=== PATIENT | male | born 1960 | race Two or more races ===

== ENCOUNTER → 2018-12-16 | Outpatient (CLI) | payer OTHER ==
[2018-12-16 12:31] LABS: Albumin 4.2 g/dL (3.4-5.0); Potassium 4.1 mmol/L (3.5-5.1)
[2018-12-16 12:37] LABS: BUN/Creatinine Ratio 15.1; Bilirubin, Total 1.2 mg/dL (0.2-1.0); Calcium 9.1 mg/dL (8.5-10.1); Total Protein 8.1 g/dL (6.4-8.2)
== END | disposition home or self-care (01) ==
LOC: LAB 10:59
PROVIDERS: ATTEND Internal Medicine
DX: E11.9 Type 2 diabetes mellitus without complications (principal); I10 Essential (primary) hypertension; E78.5 Hyperlipidemia, unspecified
CPT/HCPCS: 36415; 80053; 80061; 82043; 83036; 84153

== ENCOUNTER → 2018-12-22 | Outpatient (CLI) | payer OTHER | END | disposition home or self-care (01) | LOC: LAB 10:07 | PROVIDERS: ATTEND Internal Medicine | DX: E11.9 Type 2 diabetes mellitus without complications (principal); I10 Essential (primary) hypertension; E78.5 Hyperlipidemia, unspecified | CPT/HCPCS: 82270 ==

== ENCOUNTER → 2019-04-14 | Outpatient (CLI) | payer OTHER | END | disposition home or self-care (01) | LOC: LAB 07:15 | PROVIDERS: ATTEND Internal Medicine | DX: E11.9 Type 2 diabetes mellitus without complications (principal) | CPT/HCPCS: 36415; 83036 ==

== ENCOUNTER → 2019-07-06 | Outpatient (CLI) | payer OTHER ==
[2019-07-06 09:00] LABS: Potassium 4.8 mmol/L (3.5-5.1)
[2019-07-06 09:07] LABS: Albumin 3.8 g/dL (3.4-5.0); BUN/Creatinine Ratio 16.3; Calcium 8.6 mg/dL (8.5-10.1); Phosphorus 2.9 mg/dL (2.5-4.90)
== END | disposition home or self-care (01) ==
LOC: LAB 08:08
PROVIDERS: ATTEND Internal Medicine
DX: E11.9 Type 2 diabetes mellitus without complications (principal); I10 Essential (primary) hypertension
CPT/HCPCS: 36415; 80061; 80069

== ENCOUNTER → 2019-07-23 | Outpatient (CLI) | payer OTHER | END | disposition home or self-care (01) | LOC: XY 10:01 | PROVIDERS: ATTEND Internal Medicine | DX: I65.21 Occlusion and stenosis of right carotid artery (principal); I10 Essential (primary) hypertension; E11.9 Type 2 diabetes mellitus without complications | CPT/HCPCS: 93886 ==

== ENCOUNTER → 2019-07-29 | Outpatient (CLI) | payer OTHER ==
[2019-07-29 09:40] LABS: Cholesterol 184 mg/dL (< 200); HDL Cholesterol 65 mg/dL (40-59); LDL Cholesterol 111 mg/dL (< 100); Triglycerides 70 mg/dL (< 150)
== END | disposition home or self-care (01) ==
LOC: LAB 08:16
PROVIDERS: ATTEND Internal Medicine
DX: E11.9 Type 2 diabetes mellitus without complications (principal)
CPT/HCPCS: 36415; 80061; 83036

== ENCOUNTER → 2019-09-03 | Outpatient (CLI) | payer OTHER | END | disposition home or self-care (01) | LOC: XY 08:56 | PROVIDERS: ATTEND Internal Medicine | DX: I10 Essential (primary) hypertension (principal); R29.898 Other symptoms and signs involving the musculoskeletal system | CPT/HCPCS: 93306 ==

== ENCOUNTER → 2019-11-26 | Outpatient (CLI) | payer OTHER ==
[2019-11-26 08:51] LABS: Potassium 4.2 mmol/L (3.5-5.1)
[2019-11-26 09:03] LABS: BUN/Creatinine Ratio 17.2; Bilirubin, Total 0.8 mg/dL (0.2-1.0); Calcium 9.2 mg/dL (8.5-10.1); Total Protein 8.4 g/dL (6.4-8.2)
== END | disposition home or self-care (01) ==
LOC: LAB 07:54
PROVIDERS: ATTEND Internal Medicine
DX: Z12.5 Encounter for screening for malignant neoplasm of prostate (principal); E11.9 Type 2 diabetes mellitus without complications; E78.5 Hyperlipidemia, unspecified; I10 Essential (primary) hypertension
CPT/HCPCS: 36415; 80053; 80061; 82043; 83036; 84153

== ENCOUNTER → 2020-03-01 | Outpatient (CLI) | payer OTHER ==
[2020-03-01 07:49] LABS: Albumin 4.1 g/dL (3.4-5.0)
[2020-03-01 07:52] LABS: Bilirubin, Direct 0.3 mg/dL (0-0.2)
== END | disposition home or self-care (01) ==
LOC: LAB 07:09
PROVIDERS: ATTEND Internal Medicine
DX: E11.9 Type 2 diabetes mellitus without complications (principal); Z12.11 Encounter for screening for malignant neoplasm of colon
CPT/HCPCS: 36415; 80061; 80076; 82270; 83036

== ENCOUNTER → 2020-03-30 | Outpatient (CLI) | payer OTHER ==
[2020-03-30 10:03] LABS: Bilirubin, Direct 0.2 mg/dL (0-0.2); Bilirubin, Total 0.7 mg/dL (0.2-1.0); Total Protein 8.2 g/dL (6.4-8.2)
== END | disposition home or self-care (01) ==
LOC: LAB 07:50
PROVIDERS: ATTEND Internal Medicine
DX: E78.5 Hyperlipidemia, unspecified (principal)
CPT/HCPCS: 36415; 80076

== ENCOUNTER → 2020-06-07 | Outpatient (CLI) | payer OTHER ==
[2020-06-07 09:33] LABS: Bilirubin, Direct 0.2 mg/dL (0-0.2); Bilirubin, Total 0.7 mg/dL (0.2-1.0); Total Protein 8.1 g/dL (6.4-8.2)
== END | disposition home or self-care (01) ==
LOC: LAB 08:49
PROVIDERS: ATTEND Internal Medicine
DX: E78.5 Hyperlipidemia, unspecified (principal)
CPT/HCPCS: 36415; 80061; 80076

== ENCOUNTER → 2020-09-07 | Outpatient (CLI) | payer OTHER ==
[2020-09-07 10:34] LABS: Cholesterol 144 mg/dL (< 200); HDL Cholesterol 60 mg/dL (40-59); LDL Cholesterol 71 mg/dL (< 100); Triglycerides 147 mg/dL (< 150)
== END | disposition home or self-care (01) ==
LOC: LAB 09:34
PROVIDERS: ATTEND Internal Medicine
DX: E11.9 Type 2 diabetes mellitus without complications (principal)
CPT/HCPCS: 36415; 80061

== ENCOUNTER → 2021-03-03 | Outpatient (CLI) | payer OTHER | END | disposition home or self-care (01) | LOC: LAB 07:12 | PROVIDERS: ATTEND Internal Medicine | DX: Z12.11 Encounter for screening for malignant neoplasm of colon (principal); E55.9 Vitamin D deficiency, unspecified; E11.9 Type 2 diabetes mellitus without complications; I10 Essential (primary) hypertension | CPT/HCPCS: 82043; 82270; 82306 ==

== ENCOUNTER → 2021-09-04 | Outpatient (CLI) | payer OTHER | END | disposition home or self-care (01) | LOC: LAB 09:21 | PROVIDERS: ATTEND Internal Medicine | DX: E11.9 Type 2 diabetes mellitus without complications (principal); I10 Essential (primary) hypertension | CPT/HCPCS: 36415; 82306; 83036 ==

== ENCOUNTER → 2021-12-06 | Outpatient (CLI) | payer OTHER ==
[2021-12-06 08:33] LABS: Cholesterol 152 mg/dL (< 200); HDL Cholesterol 75 mg/dL (40-59); LDL Cholesterol 61 mg/dL (< 100); Triglycerides 123 mg/dL (< 150)
== END | disposition home or self-care (01) ==
LOC: LAB 07:09
PROVIDERS: ATTEND Internal Medicine
DX: E11.9 Type 2 diabetes mellitus without complications (principal); E78.5 Hyperlipidemia, unspecified
CPT/HCPCS: 36415; 80061; 82043; 84153

== ENCOUNTER → 2022-06-04 | Outpatient (CLI) | payer OTHER ==
[2022-06-04 08:29] LABS: Potassium 4.1 mmol/L (3.5-5.1)
[2022-06-04 08:36] LABS: BUN/Creatinine Ratio 16.1; Calcium 8.6 mg/dL (8.5-10.1)
== END | disposition home or self-care (01) ==
LOC: LAB 06:39
PROVIDERS: ATTEND Internal Medicine
DX: E11.9 Type 2 diabetes mellitus without complications (principal); E78.5 Hyperlipidemia, unspecified; I10 Essential (primary) hypertension
CPT/HCPCS: 36415; 80048; 82043; 83036

== ENCOUNTER → 2022-09-03 | Outpatient (CLI) | payer OTHER ==
[2022-09-03 08:35] LABS: Cholesterol 185 mg/dL (< 200); HDL Cholesterol 70 mg/dL (40-59); LDL Cholesterol 97 mg/dL (< 100); Triglycerides 113 mg/dL (< 150)
== END | disposition home or self-care (01) ==
LOC: LAB 07:07
PROVIDERS: ATTEND Internal Medicine
DX: E78.5 Hyperlipidemia, unspecified (principal)
CPT/HCPCS: 36415; 80061

== ENCOUNTER → 2022-12-03 | Outpatient (CLI) | payer OTHER ==
[2022-12-03 08:27] LABS: Albumin 3.9 g/dL (3.4-5.0)
[2022-12-03 08:35] LABS: Bilirubin, Direct 0.3 mg/dL (0-0.2); Bilirubin, Total 1.1 mg/dL (0.2-1.0); Total Protein 7.9 g/dL (6.4-8.2)
== END | disposition home or self-care (01) ==
LOC: LAB 07:38
PROVIDERS: ATTEND Internal Medicine
DX: E11.9 Type 2 diabetes mellitus without complications (principal); E78.5 Hyperlipidemia, unspecified
CPT/HCPCS: 36415; 80061; 80076

== ENCOUNTER → 2023-03-04 | Outpatient (CLI) | payer OTHER | END | disposition home or self-care (01) | LOC: LAB 07:47 | PROVIDERS: ATTEND Internal Medicine | DX: E11.9 Type 2 diabetes mellitus without complications (principal) | CPT/HCPCS: 36415; 83036 ==

== ENCOUNTER → 2023-06-04 | Outpatient (CLI) | payer MEDICARE, OTHER ==
[2023-06-04 08:03] LABS: Creatinine, Urine 194.92 mg/dL (30.0-125.0)
== END | disposition home or self-care (01) ==
LOC: LAB 06:42
PROVIDERS: ATTEND Internal Medicine
DX: Z12.5 Encounter for screening for malignant neoplasm of prostate (principal); Z12.11 Encounter for screening for malignant neoplasm of colon; E11.9 Type 2 diabetes mellitus without complications; E78.5 Hyperlipidemia, unspecified; E55.9 Vitamin D deficiency, unspecified
CPT/HCPCS: 36415; 82043; 82270; 82306; 82570; 83036; 84153

== ENCOUNTER → 2023-09-03 | Outpatient (CLI) | payer MEDICARE, OTHER ==
[2023-09-03 08:08] LABS: Anion Gap 6 (5-15); Carbon Dioxide 29 mmol/L (20-30); Chloride 103 mmol/L (98-107); Potassium 4.3 mmol/L (3.5-5.1); Sodium 138 mmol/L (136-145)
[2023-09-03 08:09] LABS: Calcium 9.6 mg/dL (8.5-10.1)
[2023-09-03 08:13] LABS: Glucose 157 mg/dL (74-106)
[2023-09-03 08:14] LABS: BUN/Creatinine Ratio 14.9 (10.0-20.0); Blood Urea Nitrogen 14 mg/dL (9-23); LDL Cholesterol 54 mg/dL (< 100); Triglycerides 76 mg/dL (< 150)
[2023-09-03 08:15] LABS: Cholesterol 128 mg/dL (< 200)
[2023-09-03 08:16] LABS: HDL Cholesterol 59 mg/dL (40-59)
[2023-09-03 08:21] LABS: Creatinine, Urine 261.4 mg/dL (30.0-125.0)
== END | disposition home or self-care (01) ==
LOC: LAB 07:10
PROVIDERS: ATTEND Internal Medicine
DX: E11.9 Type 2 diabetes mellitus without complications (principal); E55.9 Vitamin D deficiency, unspecified; E78.5 Hyperlipidemia, unspecified
CPT/HCPCS: 36415; 80048; 80061; 82043; 82306; 82570; 83036

== ENCOUNTER → 2023-12-04 | Outpatient (CLI) | payer MEDICARE, OTHER | END | disposition home or self-care (01) | LOC: LAB 06:33 | PROVIDERS: ATTEND Internal Medicine | DX: E11.9 Type 2 diabetes mellitus without complications (principal) | CPT/HCPCS: 36415; 83036 ==

== ENCOUNTER → 2024-03-02 | Outpatient (CLI) | payer MEDICARE, OTHER ==
[2024-03-02 11:32] LABS: Anion Gap 5 (5-15); Calcium 9.8 mg/dL (8.5-10.1); Carbon Dioxide 28 mmol/L (20-30); Chloride 106 mmol/L (98-107); Potassium 3.9 mmol/L (3.5-5.1); Sodium 139 mmol/L (136-145)
[2024-03-02 11:38] LABS: BUN/Creatinine Ratio 14.9 (10.0-20.0); Blood Urea Nitrogen 13 mg/dL (9-23); Glucose 93 mg/dL (74-106)
[2024-03-02 11:44] LABS: Creatinine, Urine 84.99 mg/dL (30.0-125.0)
== END | disposition home or self-care (01) ==
LOC: LAB 10:13
PROVIDERS: ATTEND Internal Medicine
DX: E11.9 Type 2 diabetes mellitus without complications (principal); E78.5 Hyperlipidemia, unspecified; E55.9 Vitamin D deficiency, unspecified; N40.0 Benign prostatic hyperplasia without lower urinary tract symptoms
CPT/HCPCS: 36415; 80048; 82043; 82306; 82570; 83036

== ENCOUNTER → 2024-06-02 | Outpatient (CLI) | payer MEDICARE, OTHER ==
[2024-06-02 09:10] LABS: Basophils # (auto) 0.1 10 ^3/uL (0-0.2); Basophils % (auto) 0.8 % (0.0-2.0); Eosinophils # (auto) 0.2 10 ^3/uL (0-0.8); Eosinophils % (auto) 3.2 % (0.0-7.0); Hematocrit 48.7 % (41.0-53.0); Hemoglobin 16.9 g/dL (13.5-17.5); Mean Corpuscular Hemoglobin 29.8 pg (28.0-32.0); Mean Corpuscular Hgb Conc. 34.7 g/dL (32.0-36.0); Mean Corpuscular Volume 85.8 fL (80.0-100.0); Monocytes # (auto) 0.5 10 ^3/uL (0-1.3); Monocytes % (auto) 7.3 % (0.0-12.0); Neutrophils # (auto) 4.3 10 ^3/uL (1.6-8.6); Neutrophils % (auto) 60.7 % (37.0-80.0); Nucleated Red Blood Cells % 0.1 %; Platelet Count (auto) 356 10^3/uL (140-450); Red Blood Cells 5.67 10^6/uL (4.5-5.90); Red Cell Distribution Width 13.8 % (11.8-14.3); White Blood Cell 7.1 10^3/uL (4.4-10.8)
[2024-06-02 09:53] LABS: Alanine Aminotransferase 23 U/L (7-40); Alkaline Phosphatase 84 U/L (46-116); Anion Gap 7 (5-15); BUN/Creatinine Ratio 18.5 (10.0-20.0); Blood Urea Nitrogen 15 mg/dL (9-23); Calcium 9.7 mg/dL (8.7-10.4); Carbon Dioxide 27 mmol/L (20-30); Chloride 105 mmol/L (98-107); Glucose 151 mg/dL (74-106); LDL Cholesterol 70 mg/dL (< 100); Potassium 4.5 mmol/L (3.5-5.1); Sodium 139 mmol/L (136-145); Triglycerides 104 mg/dL (< 150)
[2024-06-02 09:54] LABS: Aspartate Aminotransferase 13 U/L (13-40); Bilirubin, Total 0.8 mg/dL (0.2-1.0); Cholesterol 146 mg/dL (< 200); HDL Cholesterol 59 mg/dL (40-59); Total Protein 8.3 g/dL (5.7-8.2)
== END | disposition home or self-care (01) ==
LOC: LAB 08:40
PROVIDERS: ATTEND Internal Medicine
DX: Z12.5 Encounter for screening for malignant neoplasm of prostate (principal); Z12.11 Encounter for screening for malignant neoplasm of colon; E11.9 Type 2 diabetes mellitus without complications; E78.5 Hyperlipidemia, unspecified; Z79.899 Other long term (current) drug therapy
CPT/HCPCS: 36415; 80053; 80061; 82270; 82306; 83036; 85025; G0103; 84153

== ENCOUNTER → 2024-08-31 | Outpatient (CLI) | payer MEDICARE, OTHER | END | disposition home or self-care (01) | LOC: LAB 06:50 | PROVIDERS: ATTEND Internal Medicine | DX: E11.9 Type 2 diabetes mellitus without complications (principal); E78.5 Hyperlipidemia, unspecified; E55.9 Vitamin D deficiency, unspecified; Z86.39 Personal history of other endocrine, nutritional and metabolic disease | CPT/HCPCS: 36415; 82306; 83036 ==

== ENCOUNTER 2025-01-31 03:31 | Inpatient (IN) | payer MEDICARE, OTHER ==
[~2025-01-31] VITALS: Ht 165.1 cm; Wt 76.5 kg
[2025-01-31] MEDS: ALBUTEROL SULF 2.5 MG/0.5ML(0.5%) NEB SOLN NEB ONE (03:56)
[2025-01-31 04:02] LABS: Base Excess -4.3 mmol/L (-2.0-3.0)
[2025-01-31] MEDS: cefTRIAXone 1GM/50ML D5W 50 ML IV ONE (04:05)
[2025-01-31] MEDS: SODIUM CHLORIDE 0.9% 1,000 ML IV ONE ×3 (04:05→05:08)
[2025-01-31] MEDS: ACETAMINOPHEN 325 MG TAB PO ONE (04:12)
[2025-01-31] MEDS: ONDANSETRON HCL 4 MG/2 ML VIAL IV ONE (04:12)
[2025-01-31 04:19] LABS: Basophils # (auto) 0 10 ^3/uL (0-0.2); Basophils % (auto) 0.4 % (0.0-2.0); Eosinophils # (auto) 0 10 ^3/uL (0-0.8); Eosinophils % (auto) 0.3 % (0.0-7.0); Hematocrit 42.4 % (41.0-53.0); Hemoglobin 14.7 g/dL (13.5-17.5); Lymphocytes # (auto) 0.3 10 ^3/uL (0.4-5.4); Lymphocytes % (auto) 3.1 % (10.0-50.0); Mean Corpuscular Hemoglobin 29.7 pg (28.0-32.0); Mean Corpuscular Hgb Conc. 34.6 g/dL (32.0-36.0); Mean Corpuscular Volume 85.9 fL (80.0-100.0); Monocytes # (auto) 0.4 10 ^3/uL (0-1.3); Monocytes % (auto) 3.9 % (0.0-12.0); Neutrophils % (auto) 92.3 % (37.0-80.0); Platelet Count (auto) 231 10^3/uL (140-450); Red Blood Cells 4.94 10^6/uL (4.5-5.90); Red Cell Distribution Width 12.8 % (11.8-14.3); White Blood Cell 10.9 10^3/uL (4.4-10.8)
--- NOTE | 2025-01-31 04:26 | ED.PDOC ---
SOB-HPI HPI Comments 64-year-old male who came to ER via EMS for shortness of breath. Patient has been having flu-like symptoms for the past few days, with productive cough, episodes of hematemesis, shortness of breath, and left-sided chest pains. Noted also muscle and joint pains and headache. Patient's currently admitted pneumonia, it patient feels like he is having the same symptoms too. Patient was saturating 80% on room air on scene, and was tachycardic at the 140s Chief Complaint: Shortness of Breath Time Seen by MD: 04:18 Reviewed notes: Hr Assistant Notes Information Source: Patient Mode of Arrival: EMS Severity: Moderate Timing: Days Duration: Since onset Context: With Light Exertion Prehospital treatment: Oxygen Associated Signs and Symptoms: Cough, Chest Pain Location: Chest (L) If cough with SOB: Productive Review of Systems REVIEW OF SYSTEMS: No fever, no chills, or fatigue HEENT: No sore throat, no earache, no congestion, no neck pain. Cardiac: (+) chest pain. No palpitations. Lungs: (+) shortness of breath, (+) cough. GI: No nausea, no vomiting, no diarrhea, no constipation, no abdominal pain : No dysuria, frequency, or urgency. No hematuria. Musculoskeletal: No joint pain , no joint swelling, no extremity edema. Skin: No rash, no itching. Neuro: (+) headache, no dizziness, no weakness Vital Signs Vital Signs Date Time Temp Pulse Resp B/P (MAP) Pulse Ox O2 Delivery O2 Flow Rate FiO2 01/31/25 04:54 100.1 01/31/25 04:26 110 01/31/25 04:04 18 96 Nasal Cannula* 4 36 01/31/25 04:00 133/70 (91) Physical Exam General: Awake, alert and oriented. No acute distress. Skin: Skin in warm, dry and intact. Appropriate color for ethnicity. Nailbeds pink with no cyanosis. HEENT: The head is normocephalic and atraumatic. Conjunctivae are clear without exudates or hemorrhage. Sclera is non-icteric. EOM are intact. No signs of nystagmus. Eyelids are normal in appearance without swelling or lesions. Oral mucosa is pink and moist. Nasal cannula in place. Neck: The neck is supple with normal range of motion. No JVD. Cardiac: Heart rate and rhythm are normal. No murmurs, gallops, or rubs are auscultated. Respiratory: No signs of respiratory distress. Rhonchi at bilateral bases. Abdominal: Abdomen is soft, non-tender without distention. Bowel sounds are present and normoactive in all four quadrants. Extremities: Upper and lower extremities are atraumatic in appearance without deformity or edema. Neurological: The patient is awake, alert and oriented to person, place, and time with normal speech. Speech is clear. There is no facial asymmetry. Past Medical History PAST MEDICAL HISTORY: DM, High Lipids, HTN Surgical History (Other): Right shoulder surgery Family History Family History: Reviewed,noncontributory to illness Social History Smoker: Non-Smoker Alcohol: Denies ETOH Use Drugs: Denies Drug Use Lives In: Home EKG EKG : Pulse Rate (adult): 110 [place]: LAD Cardiac Rhythm: ST Comments No STEMI. Left anterior fascicular block Was a procedure done? Was a procedure done?: No Differential Dx Differential Diagnosis: Asthma, Bronchitis, Pneumonia, Respiratory Distress, URI X-Ray, Labs, Meds, VS Vital Signs Date Time Temp Pulse Resp B/P (MAP) Pulse Ox O2 Delivery O2 Flow Rate FiO2 01/31/25 04:54 100.1 01/31/25 04:26 110 01/31/25 04:15 110 01/31/25 04:12 101.8 01/31/25 04:04 18 96 Nasal Cannula* 4 36 01/31/25 04:00 101 16 133/70 (91) 97 01/31/25 03:45 Nasal Cannula* 4 36 01/31/25 03:45 101.8 111 18 138/76 (96) 98 101.8 01/31/25 03:36 101.8 128 18 138/76 (96) 94 101.8 Lab Test 01/31/25 04:50 01/31/25 03:56 01/31/25 03:55 Range/Units Influenza Type A Antigen Negative Negative Influenza Type B Antigen Negative Negative SARS-CoV-2 Antigen (Rapid) Negative NEGATIVE Blood Gas Specimen Type Arterial Blood Gas Sample Site Right radial Blood Gas Patient Temperature 37.0 Arterial Blood Date Drawn [id number] Arterial Blood pH 7.469 H 7.350-7.450 Arterial Blood Partial Pressure CO2 24.4 L 35.0-48.0 mmHg Arterial Blood Partial Pressure O2 80.6 L 83.0-108.0 mmHg Arterial Blood HCO3 17.3 L 21.0-28.0 mmol/L Arterial Blood Oxygen Saturation 96.1 94.0-98.0 % Arterial Blood Base Excess -4.3 L -2.0-3.0 mmol/L Arterial Blood Oxyhemoglobin 95.1 94.0-98.0 % Arterial Blood Carboxyhemoglobin 0.4 L 0.5-1.5 % Arterial Blood Methemoglobin 0.6 0.0-1.5 % Steven Test Yes Blood Gas Total Hemoglobin 14.90 13.5-17.5 g/dL Blood Gas Modality Nasal cannula FiO2 % 36.0 White Blood Count 10.9 H 4.4-10.8 10^3/uL Red Blood Count 4.94 4.5-5.90 10^6/uL Hemoglobin 14.7 13.5-17.5 g/dL Hematocrit 42.4 41.0-53.0 % Mean Corpuscular Volume 85.9 80.0-100.0 fL Mean Corpuscular Hemoglobin 29.7 28.0-32.0 pg Mean Corpuscular Hemoglobin Concent 34.6 32.0-36.0 g/dL Red Cell Distribution Width 12.8 11.8-14.3 % Platelet Count 231 140-450 10^3/uL Mean Platelet Volume 7.0 6.9-10.8 fL Neutrophils (%) (Auto) 92.3 H 37.0-80.0 % Lymphocytes (%) (Auto) 3.1 L 10.0-50.0 % Monocytes (%) (Auto) 3.9 0.0-12.0 % Eosinophils (%) (Auto) 0.3 0.0-7.0 % Basophils (%) (Auto) 0.4 0.0-2.0 % Neutrophils # (Auto) 10.0 H 1.6-8.6 10 ^3/uL Lymphocytes # (Auto) 0.3 L 0.4-5.4 10 ^3/uL Monocytes # (Auto) 0.4 0-1.3 10 ^3/uL Eosinophils # (Auto) 0 0-0.8 10 ^3/uL Basophils # (Auto) 0 0-0.2 10 ^3/uL Nucleated Red Blood Cells 0.0 % Sodium Level 138 136-145 mmol/L Potassium Level 3.7 3.5-5.1 mmol/L Chloride Level 105 98-107 mmol/L Carbon Dioxide Level 21 20-31 mmol/L Anion Gap 12 5-15 Blood Urea Nitrogen 13 9-23 mg/dL Creatinine 0.73 0.700-1.30 mg/dL Glomerular Filtration Rate Calc 100 >90 mL/min BUN/Creatinine Ratio 17.8 10.0-20.0 Serum Glucose 149 H 74-106 mg/dL Lactic Acid Level 2.3 *H 0.4-2.0 mmol/L Calcium Level 8.2 L 8.7-10.4 mg/dL Total Bilirubin 1.2 H 0.2-1.0 mg/dL Aspartate Amino Transferase (AST) 24 13-40 U/L Alanine Aminotransferase (ALT) 23 7-40 U/L Alkaline Phosphatase 89 46-116 U/L Troponin I High Sensitivity 4 </=54 ng/L B-Type Natriuretic Peptide 21.40 0-100 pg/mL Total Protein 7.0 5.7-8.2 g/dL Albumin 4.3 3.2-4.8 g/dL Current Medications Medications (Trade) Dose Ordered Sig/Tyler Route Start Time Stop Time Status Last Admin Sodium Chloride 1,000 ml @ 1,000 mls/hr Q1H ONCE IV 01/31/25 03:45 01/31/25 04:44 DC 01/31/25 04:05 Albuterol (Ventolin Medneb) 2.5 mg ONCE ONCE NEB 01/31/25 03:45 01/31/25 03:47 DC 01/31/25 03:56 Ceftriaxone Sodium 50 ml @ 100 mls/hr ONCE ONCE IV 01/31/25 03:45 01/31/25 04:14 DC 01/31/25 04:05 Vancomycin HCl 200 ml @ 200 mls/hr ONCE ONCE IV 01/31/25 03:45 01/31/25 04:44 DC 01/31/25 05:08 Sodium Chloride 1,000 ml @ 1,000 mls/hr Q1H ONCE IV 01/31/25 03:45 01/31/25 04:44 DC 01/31/25 04:05 Sodium Chloride 1,000 ml @ 130 mls/hr Q7H42M ONCE IV 01/31/25 03:45 01/31/25 11:26 DC 01/31/25 05:08 Acetaminophen (Tylenol Tablet) 650 mg ONCE ONCE PO 01/31/25 04:00 01/31/25 04:01 DC 01/31/25 04:12 PATIENT: FLORENCIO CHERRYT: [id number]: [id number] : 1960 LOC: ER ROOM / BED: / AGE / SEX: 64 / M ADM STATUS: REG ER SERVICE 0344 ORDERING PHYSICIAN: LEANDRO KENNY MD PROCEDURE(s): CXR1 - CHEST XRAY 1 VIEW REASON: Suspected Sepsis ORDER NUMBER(s): [id number], ACCESSION NUMBER(s): [id number] CHEST RADIOGRAPH Indication: Suspected Sepsis Technique: Single frontal view of the chest was obtained COMPARISON: None FINDINGS: Lines and Tubes: None Lungs: Clear Pleura: No effusion. No pneumothorax. Cardiomediastinal contours: Unremarkable Bones: Unremarkable IMPRESSION: 1. No acute disease. ATED BY: SAMMY HANSON MD DICTATED DATE/TIME: 01/31/25440 SIGNED BY: SAMMY HANSON MD SIGNED DATE/TIME: 01/31/25440 CC: Images Reviewed?: Images reviewed and evaluated by me (At lower lobe opacity concerning for pneumonia.) Time of 1ST Reevaluation: 04:11 Reevaluation 1ST: Unchanged Patient Education/Counseling: Need For Follow Up Family Education/Counseling: Need For Follow Up Departure 1 Departure Time of Disposition: 04:56 Impression: Primary Impression: Sepsis Additional Impression: Hypoxia Disposition: 09 ADMITTED INPATIENT Condition: Stable Comments 64-year-old male who presented with several days of cough, shortness of breath, hypoxia. Antibiotics and IV fluids initiated in the emergency department. Suspect right lower lobe pneumonia. Patient admitted to hospitalist service for further treatment, evaluation and monitoring. Extensive evaluation was performed in attempt to identify or rule out: (See differential diagnosis section) The following tests were ordered, and results were reviewed by me and discussed with patient: (See diagnostic results section) The following test were independently interpreted by me: EKG, chest x-ray I reviewed and agreed with the following test results read by other providers: N/A I reviewed the following notes from the pt's past medical encounters: Echocardiogram 2018 Additional information was gathered from interviewing the following independent historians: EMS personnel Discussion of management or test interpretation with external physician/other qualified health resident care provider: N/A Acute or chronic illness that poses a threat to life or bodily function: Acute hypoxia, Decision regarding hospitalization or escalation of hospital level of care: Risk and benefits of admission for further treatment of patient's condition was considered. Due to patient's current clinical condition, high risk of decline and poor outcome if discharged and need for further inpatient management and monitoring, patient will be admitted to the hospital. Discussed with patient. Drug therapy requiring intensive monitoring for toxicity: N/A Parenteral controlled substances: N/A Decision regarding elective major surgery with identified patient or procedure risk factors: N/A Decision regarding emergency major surgery: N/A Decision not to resuscitate or to de-escalate care because of poor prognosis: N/A Diagnosis or treatment significantly limited by social determinants of health: N/A Critical Care Note Critical Care Time?: No Stability Stability form required: No Heart Score Heart Score: Heart Score Response (Comments) Value History N/A 0 EKG N/A 0 Age N/A 0 Risk Factors N/A 0 Troponin N/A 0 Total 0 I personally scribed for LEANDRO KENNY MD ([email or web address]) on 01/31/25 at 04:26. Electronically submitted by Lonnie Abebe ([email or web address]). LEANDRO KENNY MD January 31, 2025 04:26
[2025-01-31 04:32] LABS: Alanine Aminotransferase 23 U/L (7-40); Albumin 4.3 g/dL (3.2-4.8); Alkaline Phosphatase 89 U/L (46-116); Anion Gap 12 (5-15); Aspartate Aminotransferase 24 U/L (13-40); BUN/Creatinine Ratio 17.8 (10.0-20.0); Blood Urea Nitrogen 13 mg/dL (9-23); Carbon Dioxide 21 mmol/L (20-31); Chloride 105 mmol/L (98-107); Potassium 3.7 mmol/L (3.5-5.1); Sodium 138 mmol/L (136-145)
[2025-01-31 04:38] LABS: Calcium 8.2 mg/dL (8.7-10.4); Glucose 149 mg/dL (74-106)
[2025-01-31 04:41] LABS: Lactic Acid w/Reflex 2.3 mmol/L (0.4-2.0)
--- NOTE | 2025-01-31 04:43 | DVH ---
CHEST RADIOGRAPH Indication: Suspected Sepsis Technique: Single frontal view of the chest was obtained COMPARISON: None FINDINGS: Lines and Tubes: None Lungs: Clear Pleura: No effusion. No pneumothorax. Cardiomediastinal contours: Unremarkable Bones: Unremarkable IMPRESSION: 1. No acute disease.
[2025-01-31 05:02] LABS: Bilirubin, Total 1.2 mg/dL (0.2-1.0)
[2025-01-31] MEDS: VANCOMYCIN 1GM/200ML PM 200 ML IV ONE (05:08)
[2025-01-31 05:18] LABS: COVID19 ANTIGEN SOFIA FIA NEGATIVE (NEGATIVE); Rapid Influenza A Negative (Negative); Rapid Influenza B Negative (Negative)
--- NOTE | 2025-01-31 05:36 | DVH ---
Procedure: CT CHEST WITHOUT CONTRAST Reason for study/Clinical History: Shortness of breath, hypoxia Comparison Study: None TECHNIQUE: Multidetector CT of the chest was performed from the lung apices to the upper abdomen with out the use of intravenous contract. Axial, coronal and sagittal multiplanar reformats were performed . Radiation Dose Information: CT Dose: CTDI volume is 10.05 mGy. Dose-length product is 400.87 mGy*cm The dose indicators for CT are the volume Computed Tomography (CT) Dose Index (CTDIvol) and the Dose Length Product (DLP), and are measured in units of mGy and mGy-cm, respectively. These indicators are not patient dose, but values generated from the CT scanner acquisition factors. The report includes radiation exposure data for exposures received during this examination. FINDINGS: Lower neck: Unremarkable. Lungs: Moderate patchy infiltrate within the lateral right lung base consistent with an infectious pr ocess such as pneumonia. Heart/Vascular Structures: Normal heart size. No pericardial effusion. Atherosclerotic vascular calci fications. Lymph Nodes: No adenopathy Pleura: No pleural effusion or significant pneumothorax. Musculoskeletal: No acute osseous abnormality. Soft tissues: Normal. Upper abdomen: Calcified gallstones within the neck of the gallbladder. Limited portions of the upper abdomen are otherwise unremarkable. IMPRESSION: 1. Lateral right lower lobe pneumonia. 2. Cholelithiasis. Radiation optimization: All CT scans at this facility use at least one of these dose optimization yarelis hniques: automated exposure control mA and/or kV adjustment per patient size (includes targeted exam s where dose is matched to clinical indication) or iterative reconstruction.
[2025-01-31] MEDS ORDERED: hydrALAZINE HCL 20 MG/ML VL IV PRN (05:45)
[2025-01-31] MEDS ORDERED: DEXTROSE (50%) 50ML SYRG IV PRN (05:45)
[2025-01-31] MEDS: SODIUM CHLORIDE 0.9% 1,000 ML IV SCH (05:45)
[2025-01-31] MEDS ORDERED: MORPHINE SULFATE INJ 2 MG/ml SYRG IV PRN (05:45)
[2025-01-31] MEDS ORDERED: DOCUSATE SOD 100 MG CAP PO PRN (05:45)
[2025-01-31] MEDS ORDERED: NITROGLYCERIN 0.4 MG SL TAB SL PRN (05:45)
[2025-01-31] MEDS ORDERED: ONDANSETRON HCL 4 MG/2 ML VIAL IV PRN (05:45)
[2025-01-31] MEDS ORDERED: ACETAMINOPHEN 325 MG TAB PO PRN (05:45)
[2025-01-31] MEDS ORDERED: HYDROcodone-ACET 5/325MG TAB PO PRN (05:45)
[2025-01-31] MEDS ORDERED: VANCOMYCIN PER PHARMACY 0 MG IV SCH (05:45)
--- NOTE | 2025-01-31 05:59 | DVHHP2 ---
History of Present Illness Reason for Visit: Acute respiratory distress with hypoxia History of Present Illness The patient is a 64 years old male with past medical history of hypertension, hyperlipidemia, and diabetes mellitus who presented to [facility] ED with complaint of shortness of breaths. Patient reports symptoms progressively get worse with productive cough, episodes of hematemesis, left-sided chest pain, increased work of breathing, getting worse that prompted this visit. Patient was seen and evaluated in the ED, laboratory data shows WBC 10.9, platelets 231, sodium 138, potassium 3.7, BUN 13, creatinine 0.73, glucose 149, calcium 8.2, total bilirubin 1.2, troponin 4, BNP 21.40, lactic acid 2.3, blood pressure 133/70, heart rate 102, temperature 101.8� F trending down to 99.7� F, O2 saturation 96% on oxygen. Patient was started on IV antibiotic regimen vancomycin, please see medication orders section in the computer. On my assess ment, patient denies chest pain, no headache, no dizziness, no diaphoresis, currently on oxygen, no nausea, no vomiting, no fever, no chills. Patient was admitted for further evaluation and medical management. Past Medical History DM, High Lipids, HTN Past Surgical History Right shoulder surgery Family History Reviewed, noncontributory to the management of this case. Past Social History The patient lives at home, denies smoking, alcohol or illicit drugs abuse. Review of Systems Constitutional: No: Fever, Chills, Sweats, Weakness, Malaise, Other Eyes: No: Pain, Vision change, Conjunctivae inflammation, Eyelid inflammation, Other, Redness ENT: No: Ear pain, Ear discharge, Nose pain, Nose discharge, Nose congestion, Mouth pain, Mouth swelling, Throat pain, Throat swelling, Other Respiratory: Shortness of breath, SOB with excertion; No: Cough, Dry, Wheezing, Hemoptysis, Pleuritic Pain, Sputum, Wheezing, Other Cardiovascular: No: Chest Pain, Palpitations, Orthopnea, Paroxysmal Noc. Dyspnea, Edema, Lt Headedness, Other Gastrointestinal: No: Nausea, Vomiting, Abdominal Pain, Diarrhea, Constipation, Melena, Hematochezia, Other Genitourinary: No Dysuria, No Frequency, No Incontinence, No Hematuria, No Retention, No Other Musculoskeletal: No: other, neck pain, shoulder pain, arm pain, back pain, hand pain, leg pain, foot pain Skin: No: Rash, Lesions, Jaundice, Bruising, Other Neurological: No: Weakness, Numbness, Incoordination, Change in speech, Confusion, Seizures, Other Allergies: Coded Allergies: NO KNOWN ALLERGIES (Unverified , 01/31/25) Medications Current Medications Medications Dose Ordered Sig/Tyler Route Start Time Stop Time Status Last Admin Dose Admin Ceftriaxone Sodium 50 ml @ 100 mls/hr DAILY@09 IV 01/31/25 09:00 UNV Vancomycin HCl 0 ml @ 0 mls/hr UD IV 01/31/25 05:45 UNV Aspirin 81 mg DAILY PO 01/31/25 10:00 UNV Hydralazine HCl 10 mg Q6HP PRN IV 01/31/25 05:45 UNV Atorvastatin Calcium 20 mg HS PO 01/31/25 22:00 UNV Diagnostic Test (Pha) 1 strip ACHS 01/31/25 07:00 UNV Insulin Human Regular ACHS SC 01/31/25 07:00 UNV Dextrose 50 ml UD PRN IV 01/31/25 05:45 UNV Sodium Chloride 1,000 ml @ 60 mls/hr [id number] IV 01/31/25 05:45 UNV Acetaminophen/ Hydrocodone Bitart 1 tab Q4HP PRN PO 01/31/25 05:45 UNV Ondansetron HCl 4 mg Q4HP PRN IV 01/31/25 05:45 UNV Docusate Sodium 100 mg BIDPRN PRN PO 01/31/25 05:45 UNV Acetaminophen 650 mg Q6HP PRN PO 01/31/25 05:45 UNV Nitroglycerin 0.4 mg Q5MINP PRN SL 01/31/25 05:45 UNV Morphine Sulfate 2 mg Q30M PRN IV 01/31/25 05:45 UNV Exam Vital Signs Vital Signs Date Time Temp Pulse Resp B/P (MAP) Pulse Ox O2 Delivery O2 Flow Rate FiO2 01/31/25 04:54 100.1 01/31/25 04:26 110 01/31/25 04:04 18 96 Nasal Cannula* 4 36 01/31/25 04:00 133/70 (91) General Appearance: Alert, Oriented X3, Cooperative, No acute distress HEENT: Atraumatic, PERRLA, EOMI, Mucous membr. moist/pink Respiratory: Normal air movement, Other (Diminished breath sounds) Cardiovascular: Regular rate, Normal S1, Normal S2, No murmurs Abdominal: Normal bowel sounds, Soft, No tenderness, No hepatospenomegaly, No masses Extremities: No clubbing, No cyanosis, No edema, Normal pulses, No tenderness/swelling Skin: No rashes, No breakdown, No significant lesion Neuro: Normal gait, Normal speech, Strength at 5/5 X4 ext, Normal tone, Sensation intact, Cranial nerves 3-12 NL, Reflexes 2+ Psych/Mental Status: Mental status NL, Mood NL Labs/Xrays Labs Test 01/31/25 04:50 01/31/25 03:56 01/31/25 03:55 Range/Units Influenza Type A Antigen Negative Negative Influenza Type B Antigen Negative Negative SARS-CoV-2 Antigen (Rapid) Negative NEGATIVE Blood Gas Specimen Type Arterial Blood Gas Sample Site Right radial Blood Gas Patient Temperature 37.0 Arterial Blood Date Drawn [id number] Arterial Blood pH 7.469 H 7.350-7.450 Arterial Blood Partial Pressure CO2 24.4 L 35.0-48.0 mmHg Arterial Blood Partial Pressure O2 80.6 L 83.0-108.0 mmHg Arterial Blood HCO3 17.3 L 21.0-28.0 mmol/L Arterial Blood Oxygen Saturation 96.1 94.0-98.0 % Arterial Blood Base Excess -4.3 L -2.0-3.0 mmol/L Arterial Blood Oxyhemoglobin 95.1 94.0-98.0 % Arterial Blood Carboxyhemoglobin 0.4 L 0.5-1.5 % Arterial Blood Methemoglobin 0.6 0.0-1.5 % Steven Test Yes Blood Gas Total Hemoglobin 14.90 13.5-17.5 g/dL Blood Gas Modality Nasal cannula FiO2 % 36.0 White Blood Count 10.9 H 4.4-10.8 10^3/uL Red Blood Count 4.94 4.5-5.90 10^6/uL Hemoglobin 14.7 13.5-17.5 g/dL Hematocrit 42.4 41.0-53.0 % Mean Corpuscular Volume 85.9 80.0-100.0 fL Mean Corpuscular Hemoglobin 29.7 28.0-32.0 pg Mean Corpuscular Hemoglobin Concent 34.6 32.0-36.0 g/dL Red Cell Distribution Width 12.8 11.8-14.3 % Platelet Count 231 140-450 10^3/uL Mean Platelet Volume 7.0 6.9-10.8 fL Neutrophils (%) (Auto) 92.3 H 37.0-80.0 % Lymphocytes (%) (Auto) 3.1 L 10.0-50.0 % Monocytes (%) (Auto) 3.9 0.0-12.0 % Eosinophils (%) (Auto) 0.3 0.0-7.0 % Basophils (%) (Auto) 0.4 0.0-2.0 % Neutrophils # (Auto) 10.0 H 1.6-8.6 10 ^3/uL Lymphocytes # (Auto) 0.3 L 0.4-5.4 10 ^3/uL Monocytes # (Auto) 0.4 0-1.3 10 ^3/uL Eosinophils # (Auto) 0 0-0.8 10 ^3/uL Basophils # (Auto) 0 0-0.2 10 ^3/uL Nucleated Red Blood Cells 0.0 % Sodium Level 138 136-145 mmol/L Potassium Level 3.7 3.5-5.1 mmol/L Chloride Level 105 98-107 mmol/L Carbon Dioxide Level 21 20-31 mmol/L Anion Gap 12 5-15 Blood Urea Nitrogen 13 9-23 mg/dL Creatinine 0.73 0.700-1.30 mg/dL Glomerular Filtration Rate Calc 100 >90 mL/min BUN/Creatinine Ratio 17.8 10.0-20.0 Serum Glucose 149 H 74-106 mg/dL Lactic Acid Level 2.3 *H 0.4-2.0 mmol/L Calcium Level 8.2 L 8.7-10.4 mg/dL Total Bilirubin 1.2 H 0.2-1.0 mg/dL Aspartate Amino Transferase (AST) 24 13-40 U/L Alanine Aminotransferase (ALT) 23 7-40 U/L Alkaline Phosphatase 89 46-116 U/L Troponin I High Sensitivity 4 </=54 ng/L B-Type Natriuretic Peptide 21.40 0-100 pg/mL Total Protein 7.0 5.7-8.2 g/dL Albumin 4.3 3.2-4.8 g/dL PATIENT: SUZANNA CHERRYJOANT: [id number] UNIT: [id number] : 1960 LOC: ER ROOM / BED: / AGE / SEX: 64 / M ADM STATUS: REG ER SERVICE 0344 ORDERING PHYSICIAN: LEANDRO KENNY MD PROCEDURE(s): CXR1 - CHEST XRAY 1 VIEW REASON: Suspected Sepsis ORDER NUMBER(s): [id number], ACCESSION NUMBER(s): [id number] CHEST RADIOGRAPH Indication: Suspected Sepsis Technique: Single frontal view of the chest was obtained COMPARISON: None FINDINGS: Lines and Tubes: None Lungs: Clear Pleura: No effusion. No pneumothorax. Cardiomediastinal contours: Unremarkable Bones: Unremarkable IMPRESSION: 1. No acute disease. Assessment/Plan Assessment/Plan Acute respiratory failure with hypoxia Sepsis, unspecified organism Plan 1. Admit to telemetry unit 2. Breathing treatment 3. Pain control management 4. IV antibiotic management 5. Management of fluids and electrolytes 6. Consultation for hospitalist 7. Diagnostic test chest x-ray 8. DVT prophylaxis-on aspirin 9. Repeat labs CBC, CMP in a.m. 10. Home medication reviewed and reconciled 11. Continue with current medical management 12. Treatment plan discussed with patient and RN. Patient verbalized understanding. Plan discussed with: Patient, Other (RN) My Orders Orders - AICHA SUAREZ DNP Procedure Category Date Status Time Complete Blood Count LAB 01/31/25 Logged 05:38 Comprehensive LAB 01/31/25 Logged Metabolic Panel 05:38 Consistent DIET 01/31/25 Transmitted Carb(Ccho)Diabetes Breakfast Ceftriaxone 1gm/50ml PHA 01/31/25 Logged D5w (Rocephin) 09:00 Vancomycin Per PHA 01/31/25 Logged Pharmacy 05:45 Aspirin Tablet PHA 01/31/25 Logged 10:00 Hydralazine Injection PHA 01/31/25 Logged (Apresoline Inject 05:45 Atorvastatin (Lipitor) PHA 01/31/25 Logged 22:00 Glucose Blood PHA 01/31/25 Logged (Accu-Chek Comfort 07:00 Insulin R (Human) PHA 01/31/25 Logged (Insulin R) 07:00 Dextrose 50% Syringe PHA 01/31/25 Logged 05:45 Admit ADMIT 01/31/25 Transmitted 05:38 Allergies [place] 01/31/25 In Process 05:38 Code Status CODE 01/31/25 Transmitted 05:38 Sodium Chloride 0.9% PHA 01/31/25 Logged 05:45 Oxygen Per Hour RT 01/31/25 Transmitted 05:38 Hydrocodone-Acet PHA 01/31/25 Logged 5/325mg Tab (Eek 05:45 Ondansetron Hcl PHA 01/31/25 Logged (Zofran) 05:45 Docusate Sodium PHA 01/31/25 Logged Capsule (Colace 05:45 Complete Blood Count LAB 02/01/25 Verified 04:00 Comprehensive LAB 02/01/25 Verified Metabolic Panel 04:00 Condition: Serious [place] 01/31/25 In Process 05:38 Acetaminophen Tablet [facility] 01/31/25 Logged (Tylenol Tablet) 05:45 Bedrest With Bathroom [facility] 01/31/25 In Process Privileg 05:38 Sequential [facility] 01/31/25 In Process Compression Device Nitroglycerin [facility] 01/31/25 Logged Sublingual (Ntrostat 05:45 Morphine Sulfate [facility] 01/31/25 Logged Injection 05:45 Notify Md Of Changes [facility] 01/31/25 In Process From Base 05:38 Polysilicon Preparation Worker For [facility] 01/31/25 In Process 24 Hours 05:38 Emergency Dysrhythmia [facility] 01/31/25 In Process Protocol 05:38 Rhythm Strips Once [facility] 01/31/25 In Process Every Shift 05:38 Oxygen By Nasal RT 01/31/25 Transmitted Cannula 05:38 Problem List: (1) Acute respiratory failure with hypoxia (2) Sepsis, unspecified organism Date of Service: January 31, 2025 Billing Provider: AICHA SUAREZ DNP Common Visit Codes: [id number] INP/OBS CARE (HIGH) AICHA SUAREZ DNP January 31, 2025 05:59
[2025-01-31] MEDS: ACCU-CHEK COMFORT CURVE STRIP VI SCH (06:41)
[2025-01-31] MEDS: InsuLIN REG 1unit/0.01ml Soln (100units/ml) SC SCH (06:51)
--- NOTE | 2025-01-31 07:14 | ECG ---
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
[2025-01-31 09:00] VITALS: BP 115/65; PULSE 91; RESP 18; TEMP 98.9; O2SAT 99
[2025-01-31 09:20] VITALS: BP 115/65; PULSE 86; PULSE 91; RESP 20; TEMP 98.9; O2SAT 96; O2SAT 99
[2025-01-31] MEDS: ASPirin 81 mg TAB PO SCH (09:54)
[2025-01-31 11:38] LABS: Urine Bacteria None Seen /hpf (None Seen)
[2025-01-31 11:47] LABS: Urine Blood Negative /uL (Negative); Urine Clarity Clear (Clear); Urine Color Light-Yellow (Yellow); Urine Protein, UAD Negative (Negative); Urine Specific Gravity 1.028 (1.001-1.035); Urine Squamous Epithelial Cell None Seen /hpf (<5); Urine Urobilinogen Normal (Negative); Urine WBC 1 /HPF (0-3)
[2025-01-31 12:12] VITALS: BP 124/67; PULSE 87; RESP 25; TEMP 98.5; O2SAT 94
--- NOTE | 2025-01-31 13:23 | DVHPN2 ---
Reviewed: Care Plan, H&P, Labs, Medications, Previous Orders, Radiology Changes from previous H/P or p: No Changes Eyes: No Pain, No Vision change, No Conjunctivae inflammation, No Eyelid inflammation, No Other, No Redness ENT: No Ear pain, No Ear discharge, No Nose pain, No Nose discharge, No Nose congestion, No Mouth pain, No Mouth swelling, No Throat pain, No Throat swelling, No Other Cardiovascular: No Chest Pain, No Palpitations, No Orthopnea, No Paroxysmal Noc. Dyspnea, No Edema, No Lt Headedness, No Other Respiratory: No Cough, No Dry; Shortness of breath, SOB with excertion; No Wheezing, No Hemoptysis, No Pleuritic Pain, No Sputum, No Other Gastrointestinal: No Nausea, No Vomiting, No Abdominal Pain, No Diarrhea, No Constipation, No Melena, No Hematochezia, No Other Genitourinary: No Dysuria, No Frequency, No Incontinence, No Hematuria, No Retention, No Other Musculoskeletal: No other, No neck pain, No shoulder pain, No arm pain, No back pain, No hand pain, No leg pain, No foot pain Skin: No Rash, No Lesions, No Jaundice, No Bruising, No Other Objective Vitals Vital Signs Date Time Temp Pulse Resp B/P (MAP) Pulse Ox O2 Delivery O2 Flow Rate FiO2 01/31/25 12:12 98.5 87 25 124/67 (86) 94 98.5 01/31/25 07:21 Nasal Cannula* 4 36 Intake/Output Intake and Output 01/31/25 07:00 Intake Total 2380 ml Balance 2380 ml Intake IV Total 2380 ml Medications Current Medications Medications Dose Ordered Sig/Tyler Route Start Time Stop Time Status Last Admin Dose Admin Ceftriaxone Sodium 50 ml @ 100 mls/hr DAILY@09 IV 02/01/25 09:00 Vancomycin HCl 0 ml @ 0 mls/hr UD IV 01/31/25 05:45 Aspirin 81 mg DAILY PO 01/31/25 10:00 01/31/25 09:54 81 MG Hydralazine HCl 10 mg Q6HP PRN IV 01/31/25 05:45 Atorvastatin Calcium 20 mg HS PO 01/31/25 22:00 Diagnostic Test (Pha) 1 strip ACHS 01/31/25 07:00 01/31/25 11:42 1 STRIP Insulin Human Regular ACHS SC 01/31/25 07:00 01/31/25 11:50 2 UNITS Dextrose 50 ml UD PRN IV 01/31/25 05:45 Sodium Chloride 1,000 ml @ 60 mls/hr [id number] IV 01/31/25 05:45 Acetaminophen/ Hydrocodone Bitart 1 tab Q4HP PRN PO 01/31/25 05:45 Ondansetron HCl 4 mg Q4HP PRN IV 01/31/25 05:45 Docusate Sodium 100 mg BIDPRN PRN PO 01/31/25 05:45 Acetaminophen 650 mg Q6HP PRN PO 01/31/25 05:45 Nitroglycerin 0.4 mg Q5MINP PRN SL 01/31/25 05:45 Morphine Sulfate 2 mg Q30M PRN IV 01/31/25 05:45 Vancomycin HCl 250 ml @ 200 mls/hr Q12H IV 01/31/25 17:00 Laboratory Results Laboratory Tests 01/31/25 03:55 Chemistry Test 01/31/25 03:55 Albumin 4.3 g/dL (3.2-4.8) Calcium Level 8.2 mg/dL (8.7-10.4) L Total Protein 7.0 g/dL (5.7-8.2) Cardiac Markers Test 01/31/25 03:55 B-Type Natriuretic Peptide 21.40 pg/mL (0-100) LFT Test 01/31/25 03:55 Alanine Aminotransferase (ALT) 23 U/L (7-40) Alkaline Phosphatase 89 U/L (46-116) Aspartate Amino Transferase (AST) 24 U/L (13-40) Total Bilirubin 1.2 mg/dL (0.2-1.0) H Urinalysis Test 01/31/25 11:12 Urine Color Light-yellow (Yellow) Urine Clarity Clear (Clear) Urine pH 6.0 (5.0-9.0) Urine Specific [place] 1.028 (1.001-1.035) Urine Protein Negative (Negative) Urine Ketones Negative (Negative) Urine Blood Negative /uL (Negative) Urine Nitrite Negative (Negative) Urine Bilirubin Negative (Negative) Urine Urobilinogen Normal mg/dL (Negative) Urine Leukocyte Esterase Negative /uL (Negative) Urine RBC None seen /hpf (0 - 3) Urine Microscopic WBC 1 /HPF (0-3) Urine Squamous Epithelial Cells None seen /hpf (<5) Urine Bacteria None seen /hpf (None Seen) Urine Glucose 4+ mg/dL (Normal) H Blood Gas Results Test 01/31/25 03:56 Arterial Blood pH 7.469 (7.350-7.450) FiO2 % 36.0 Labs and/or images reviewed: Labs reviewed by me, Image(s) reviewed by me Assessment/Plan Assessment/Plan Acute hypoxic respiratory failure: Oxygen by nasal cannula Acute community-acquired right lower lobe pneumonia: Rocephin azithromycin albuterol Atrovent Solu-Medrol Diabetes: Insulin sliding scale Hypertension Hypercholesterolemia Acute metabolic encephalopathy Acute lactic acidosis Troponin negative BNP negative Flu test negative COVID test negative Spent 70 minutes Advanced care planning time 20 minutes Patient is full code Plan discussed with: Patient My Orders Orders - CHAI THOMAS MD Procedure Category Date Status Time Azithromycin 500mg/ PHA 02/01/25 Verified 250ml (Zithromax 50 10:00 Azithromycin 500mg/ PHA 01/31/25 Verified 250ml (Zithromax 50 13:30 Date of Service: January 31, 2025 Billing Provider: CHAI THOMAS MD Common Visit Codes: [id number] CARE 30-74 MIN CHAI THOMAS MD January 31, 2025 13:23
[2025-01-31] MEDS: AZITHROMYCIN 500MG/ 250ML 250 ML IV ONE (15:05)
[2025-01-31 17:00] VITALS: BP 125/70; PULSE 96; RESP 18; TEMP 98.9; O2SAT 93
[2025-01-31] MEDS ORDERED: VANCOMYCIN 1.25GM/250ML 250 ML IV SCH (17:00)
[2025-01-31 20:00] VITALS: PULSE 98
[2025-01-31 21:00] VITALS: BP 127/74; PULSE 93; RESP 18; TEMP 98.4; O2SAT 95
[2025-01-31] MEDS: ATORVASTATIN 20 MG TAB PO SCH (21:57)
--- NOTE | 2025-01-31 23:19 | DVHINCON2 ---
Date of service: January 31, 2025 Referring Physician Jose Reason for Consultation Acute SOB, CHF History of Present Illness This is a 64 year old male with a past medical history of hypertension, hyperlipidemia, and diabetes mellitus who presented to the ED with complaints of shortness of breath. Patient reports symptoms progressively get worse with productive cough, episodes of hematemesis, left-sided chest pain, increased work of breathing that was worsening. WBC 10.9, PLT 231, NA 138, K 3.7, CA 8.2, BNP 21.40, LA 2.3. Troponin is negative. Chest x-ray showed NAD. Viral swabs are negative. CT chest revealed lateral right lower lobe pneumonia and cholelithiasis. EKG: tachycardia at 101. Patient was admitted to the hospital. I am asked to consult on this patient. Family History: Patient reports no known family medical history. Allergies: Coded Allergies: NO KNOWN ALLERGIES (Unverified , 01/31/25) Current Medications Current Medications Medications (Trade) Dose Ordered Sig/Tyler Route PRN Reason Start Time Stop Time Status Last Admin Ceftriaxone Sodium 50 ml @ 100 mls/hr DAILY@09 IV 02/01/25 09:00 Vancomycin HCl 0 ml @ 0 mls/hr UD IV 01/31/25 05:45 Cancel Aspirin 81 mg DAILY PO 01/31/25 10:00 01/31/25 09:54 Hydralazine HCl (Apresoline Injection) 10 mg Q6HP PRN IV SBP>150 01/31/25 05:45 Atorvastatin Calcium (Lipitor) 20 mg HS PO 01/31/25 22:00 Diagnostic Test (Pha) (Accu-Chek Comfort Curve T) 1 strip ACHS 01/31/25 07:00 01/31/25 16:33 Insulin Human Regular (InsuLIN R) ACHS SC 01/31/25 07:00 01/31/25 16:32 Dextrose 50 ml UD PRN IV Blood Sugar LESS THAN 60 01/31/25 05:45 Sodium Chloride 1,000 ml @ 60 mls/hr [id number] IV 01/31/25 05:45 Acetaminophen/ Hydrocodone Bitart ([place] 5/325MG Tab) 1 tab Q4HP PRN PO MODERATE PAIN (4-6 PAIN SCALE) 01/31/25 05:45 Ondansetron HCl (Zofran) 4 mg Q4HP PRN IV NAUSEA / VOMITING 01/31/25 05:45 Docusate Sodium (Colace Capsule) 100 mg BIDPRN PRN PO FOR CONSTIPATION 01/31/25 05:45 Acetaminophen (Tylenol Tablet) 650 mg Q6HP PRN PO PAIN SCALE 1-3 OR TEMP>100.4 01/31/25 05:45 Nitroglycerin (Ntrostat Sublingual) 0.4 mg Q5MINP PRN SL FOR CHEST PAIN 01/31/25 05:45 Morphine Sulfate 2 mg Q30M PRN IV FOR CHEST PAIN 01/31/25 05:45 Vancomycin HCl 250 ml @ 200 mls/hr Q12H IV 01/31/25 17:00 Cancel Azithromycin 250 ml @ 125 mls/hr DAILY IV 02/01/25 10:00 Review of Systems CONSTITUTIONAL: No fever, no chills, or fatigue HEENT: No sore throat, no earache, no congestion, no neck pain. Cardiac: (+) chest pain. No palpitations. Lungs: (+) shortness of breath, (+) cough. GI: No nausea, no vomiting, no diarrhea, no constipation, no abdominal pain : No dysuria, frequency, or urgency. No hematuria. Musculoskeletal: No joint pain , no joint swelling, no extremity edema. Skin: No rash, no itching. Neuro: (+) headache, no dizziness, no weakness Vital Signs Vital Signs Date Time Temp Pulse Resp B/P (MAP) Pulse Ox O2 Delivery O2 Flow Rate FiO2 01/31/25 12:12 98.5 87 25 124/67 (86) 94 98.5 01/31/25 09:20 Room Air* 0 21 Physical Exam GENERAL: Alert and oriented x 3. No acute distress. EYES: PERRL, EOMI. Anicteric. HENT: Moist mucous membranes. LUNGS: Decreased breath sounds. CARDIOVASCULAR: Regular rate and rhythm. ABDOMEN: Soft, nontender and nondistended. EXTREMITIES: No edema. NEUROLOGIC: No focal neurological deficits. SKIN: Warm, dry. Labs/Diagnostic Data Labs Test 01/31/25 16:19 01/31/25 13:38 01/31/25 11:12 01/31/25 05:55 Range/Units POC Glucose 250 H 70-106 mg/dl D-Dimer, Quantitative 0.39 0.0-0.49 mg/L FEU Urine Color Light-yellow Yellow Urine Clarity Clear Clear Urine pH 6.0 5.0-9.0 Urine Specific [place] 1.028 1.001-1.035 Urine Protein Negative Negative Urine Ketones Negative Negative Urine Blood Negative Negative /uL Urine Nitrite Negative Negative Urine Bilirubin Negative Negative Urine Urobilinogen Normal Negative mg/dL Urine Leukocyte Esterase Negative Negative /uL Urine RBC None seen 0 - 3 /hpf Urine Microscopic WBC 1 0-3 /HPF Urine Squamous Epithelial Cells None seen <5 /hpf Urine Bacteria None seen None Seen /hpf Urine Glucose 4+ H Normal mg/dL Lactic Acid Level 1.7 0.4-2.0 mmol/L Test 01/31/25 04:50 01/31/25 03:56 01/31/25 03:55 Range/Units Influenza Type A Antigen Negative Negative Influenza Type B Antigen Negative Negative SARS-CoV-2 Antigen (Rapid) Negative NEGATIVE Blood Gas Specimen Type Arterial Blood Gas Sample Site Right radial Blood Gas Patient Temperature 37.0 Arterial Blood Date Drawn [id number] Arterial Blood pH 7.469 H 7.350-7.450 Arterial Blood Partial Pressure CO2 24.4 L 35.0-48.0 mmHg Arterial Blood Partial Pressure O2 80.6 L 83.0-108.0 mmHg Arterial Blood HCO3 17.3 L 21.0-28.0 mmol/L Arterial Blood Oxygen Saturation 96.1 94.0-98.0 % Arterial Blood Base Excess -4.3 L -2.0-3.0 mmol/L Arterial Blood Oxyhemoglobin 95.1 94.0-98.0 % Arterial Blood Carboxyhemoglobin 0.4 L 0.5-1.5 % Arterial Blood Methemoglobin 0.6 0.0-1.5 % Steven Test Yes Blood Gas Total Hemoglobin 14.90 13.5-17.5 g/dL Blood Gas Modality Nasal cannula FiO2 % 36.0 White Blood Count 10.9 H 4.4-10.8 10^3/uL Red Blood Count 4.94 4.5-5.90 10^6/uL Hemoglobin 14.7 13.5-17.5 g/dL Hematocrit 42.4 41.0-53.0 % Mean Corpuscular Volume 85.9 80.0-100.0 fL Mean Corpuscular Hemoglobin 29.7 28.0-32.0 pg Mean Corpuscular Hemoglobin Concent 34.6 32.0-36.0 g/dL Red Cell Distribution Width 12.8 11.8-14.3 % Platelet Count 231 140-450 10^3/uL Mean Platelet Volume 7.0 6.9-10.8 fL Neutrophils (%) (Auto) 92.3 H 37.0-80.0 % Lymphocytes (%) (Auto) 3.1 L 10.0-50.0 % Monocytes (%) (Auto) 3.9 0.0-12.0 % Eosinophils (%) (Auto) 0.3 0.0-7.0 % Basophils (%) (Auto) 0.4 0.0-2.0 % Neutrophils # (Auto) 10.0 H 1.6-8.6 10 ^3/uL Lymphocytes # (Auto) 0.3 L 0.4-5.4 10 ^3/uL Monocytes # (Auto) 0.4 0-1.3 10 ^3/uL Eosinophils # (Auto) 0 0-0.8 10 ^3/uL Basophils # (Auto) 0 0-0.2 10 ^3/uL Nucleated Red Blood Cells 0.0 % Sodium Level 138 136-145 mmol/L Potassium Level 3.7 3.5-5.1 mmol/L Chloride Level 105 98-107 mmol/L Carbon Dioxide Level 21 20-31 mmol/L Anion Gap 12 5-15 Blood Urea Nitrogen 13 9-23 mg/dL Creatinine 0.73 0.700-1.30 mg/dL Glomerular Filtration Rate Calc 100 >90 mL/min BUN/Creatinine Ratio 17.8 10.0-20.0 Serum Glucose 149 H 74-106 mg/dL Calcium Level 8.2 L 8.7-10.4 mg/dL Total Bilirubin 1.2 H 0.2-1.0 mg/dL Aspartate Amino Transferase (AST) 24 13-40 U/L Alanine Aminotransferase (ALT) 23 7-40 U/L Alkaline Phosphatase 89 46-116 U/L Troponin I High Sensitivity 4 </=54 ng/L B-Type Natriuretic Peptide 21.40 0-100 pg/mL Total Protein 7.0 5.7-8.2 g/dL Albumin 4.3 3.2-4.8 g/dL Assessment Acute hypoxic respiratory failure. Acute community-acquired right lower lobe pneumonia. Diabetes. Hypertension. Hypercholesterolemia. Acute metabolic encephalopathy. Acute lactic acidosis. Plan/Recommendation I agree with your ongoing assessment and care of plan. Telemetry reviewed. Echocardiogram. Morphine and [place] for pain management. Aspirin, Lipitor. IV antibiotics as ordered. IV Hydralazine for SBP > 150. Nitro SL. Additional plan as per the hospital course. A total of 45 minutes was spent reviewing the patient record, examining the patient, making a diagnostic and therapeutic plan, discussing this plan with medical personnel, following up on diagnostic studies and following the patient for clinical stability excluding any and all procedures. At least 50% of this time was spent in direct, [id number] contact. Plan discussed with: Patient LISY JACOBSON MD January 31, 2025 17:34
[2025-02-01] VITALS (8 sets, daily range): BP systolic 121–149; BP diastolic 69–84; PULSE 87–105; RESP 16–19; TEMP 98.1–98.7; O2SAT 94–96
[2025-02-01 07:48] LABS: Basophils # (auto) 0 10 ^3/uL (0-0.2); Basophils % (auto) 0.2 % (0.0-2.0); Eosinophils # (auto) 0.1 10 ^3/uL (0-0.8); Eosinophils % (auto) 0.4 % (0.0-7.0); Hematocrit 41.3 % (41.0-53.0); Hemoglobin 14.2 g/dL (13.5-17.5); Lymphocytes # (auto) 1.4 10 ^3/uL (0.4-5.4); Mean Corpuscular Hemoglobin 29.4 pg (28.0-32.0); Mean Corpuscular Hgb Conc. 34.4 g/dL (32.0-36.0); Mean Corpuscular Volume 85.6 fL (80.0-100.0); Monocytes # (auto) 0.9 10 ^3/uL (0-1.3); Monocytes % (auto) 5.6 % (0.0-12.0); Neutrophils # (auto) 13.6 10 ^3/uL (1.6-8.6); Neutrophils % (auto) 84.8 % (37.0-80.0); Nucleated Red Blood Cells % 0.1 %; Platelet Count (auto) 234 10^3/uL (140-450); Red Blood Cells 4.83 10^6/uL (4.5-5.90); Red Cell Distribution Width 13.3 % (11.8-14.3)
[2025-02-01 07:53] LABS: Alanine Aminotransferase 21 U/L (7-40); Albumin 3.9 g/dL (3.2-4.8); Alkaline Phosphatase 96 U/L (46-116); Anion Gap 11 (5-15); Aspartate Aminotransferase 20 U/L (13-40); BUN/Creatinine Ratio 18.7 (10.0-20.0); Blood Urea Nitrogen 14 mg/dL (9-23); Calcium 9.2 mg/dL (8.7-10.4); Carbon Dioxide 22 mmol/L (20-31); Chloride 106 mmol/L (98-107); Glucose 104 mg/dL (74-106); Potassium 3.7 mmol/L (3.5-5.1); Sodium 139 mmol/L (136-145); Total Protein 6.8 g/dL (5.7-8.2)
[2025-02-01 07:54] LABS: Bilirubin, Total 1.2 mg/dL (0.2-1.0)
[2025-02-01] MEDS: cefTRIAXone 1GM/50ML D5W 50 ML IV SCH (09:11)
[2025-02-01] MEDS: AZITHROMYCIN 500MG/ 250ML 250 ML IV SCH (09:46)
--- NOTE | 2025-02-01 11:57 | DVHPN2 ---
Reviewed: Care Plan, H&P, Labs, Medications, Previous Orders, Radiology Changes from previous H/P or p: No Changes Eyes: No Pain, No Vision change, No Conjunctivae inflammation, No Eyelid inflammation, No Other, No Redness ENT: No Ear pain, No Ear discharge, No Nose pain, No Nose discharge, No Nose congestion, No Mouth pain, No Mouth swelling, No Throat pain, No Throat swelling, No Other Cardiovascular: No Chest Pain, No Palpitations, No Orthopnea, No Paroxysmal Noc. Dyspnea, No Edema, No Lt Headedness, No Other Respiratory: No Cough, No Dry; Shortness of breath, SOB with excertion; No Wheezing, No Hemoptysis, No Pleuritic Pain, No Sputum, No Other Gastrointestinal: No Nausea, No Vomiting, No Abdominal Pain, No Diarrhea, No Constipation, No Melena, No Hematochezia, No Other Genitourinary: No Dysuria, No Frequency, No Incontinence, No Hematuria, No Retention, No Other Musculoskeletal: No other, No neck pain, No shoulder pain, No arm pain, No back pain, No hand pain, No leg pain, No foot pain Skin: No Rash, No Lesions, No Jaundice, No Bruising, No Other Objective Vitals Vital Signs Date Time Temp Pulse Resp B/P (MAP) Pulse Ox O2 Delivery O2 Flow Rate FiO2 02/01/25 09:00 98.2 90 16 121/74 (90) 95 98.2 02/01/25 08:00 Room Air* 0 21 Intake/Output Intake and Output 02/01/25 07:00 Intake Total 655 ml Output Total 0 ml Balance 655 ml Intake Oral 400 ml IV Total 255 ml Output Urine Total 0 ml # Voids 1 Medications Current Medications Medications Dose Ordered Sig/Tyler Route Start Time Stop Time Status Last Admin Dose Admin Ceftriaxone Sodium 50 ml @ 100 mls/hr DAILY@09 IV 02/01/25 09:00 02/01/25 09:11 100 MLS/HR Vancomycin HCl 0 ml @ 0 mls/hr UD IV 01/31/25 05:45 Cancel Aspirin 81 mg DAILY PO 01/31/25 10:00 02/01/25 09:11 81 MG Hydralazine HCl 10 mg Q6HP PRN IV 01/31/25 05:45 Atorvastatin Calcium 20 mg HS PO 01/31/25 22:00 01/31/25 21:57 20 MG Diagnostic Test (Pha) 1 strip ACHS 01/31/25 07:00 02/01/25 11:23 1 STRIP Insulin Human Regular ACHS SC 01/31/25 07:00 02/01/25 11:25 3 UNITS Dextrose 50 ml UD PRN IV 01/31/25 05:45 Sodium Chloride 1,000 ml @ 60 mls/hr [id number] IV 01/31/25 05:45 01/31/25 22:01 60 MLS/HR Acetaminophen/ Hydrocodone Bitart 1 tab Q4HP PRN PO 01/31/25 05:45 Ondansetron HCl 4 mg Q4HP PRN IV 01/31/25 05:45 Docusate Sodium 100 mg BIDPRN PRN PO 01/31/25 05:45 Acetaminophen 650 mg Q6HP PRN PO 01/31/25 05:45 Nitroglycerin 0.4 mg Q5MINP PRN SL 01/31/25 05:45 Morphine Sulfate 2 mg Q30M PRN IV 01/31/25 05:45 Vancomycin HCl 250 ml @ 200 mls/hr Q12H IV 01/31/25 17:00 Cancel Azithromycin 250 ml @ 125 mls/hr DAILY IV 02/01/25 10:00 02/01/25 09:46 125 MLS/HR Laboratory Results Laboratory Tests 02/01/25 06:43 Chemistry Test 02/01/25 06:43 Albumin 3.9 g/dL (3.2-4.8) Calcium Level 9.2 mg/dL (8.7-10.4) Total Protein 6.8 g/dL (5.7-8.2) Coagulation Test 01/31/25 13:38 D-Dimer, Quantitative 0.39 mg/L FEU (0.0-0.49) LFT Test 02/01/25 06:43 Alanine Aminotransferase (ALT) 21 U/L (7-40) Alkaline Phosphatase 96 U/L (46-116) Aspartate Amino Transferase (AST) 20 U/L (13-40) Total Bilirubin 1.2 mg/dL (0.2-1.0) H Urinalysis Test 01/31/25 11:12 Urine Color Light-yellow (Yellow) Urine Clarity Clear (Clear) Urine pH 6.0 (5.0-9.0) Urine Specific [place] 1.028 (1.001-1.035) Urine Protein Negative (Negative) Urine Ketones Negative (Negative) Urine Blood Negative /uL (Negative) Urine Nitrite Negative (Negative) Urine Bilirubin Negative (Negative) Urine Urobilinogen Normal mg/dL (Negative) Urine Leukocyte Esterase Negative /uL (Negative) Urine RBC None seen /hpf (0 - 3) Urine Microscopic WBC 1 /HPF (0-3) Urine Squamous Epithelial Cells None seen /hpf (<5) Urine Bacteria None seen /hpf (None Seen) Urine Glucose 4+ mg/dL (Normal) H Microbiology Microbiology Date/Time Source Procedure Growth Status 01/31/25 04:00 Blood Blood Culture - Preliminary NO GROWTH AFTER 24 HOURS OF INCUBATION. Resulted Labs and/or images reviewed: Labs reviewed by me, Image(s) reviewed by me Assessment/Plan Assessment/Plan Acute hypoxic respiratory failure: Oxygen by nasal cannula Acute community-acquired right lower lobe pneumonia: Rocephin azithromycin albuterol Atrovent Solu-Medrol Diabetes: Insulin sliding scale Possible congestive Heart failure: Cardiology consult by Dr. Butler appreciated, echocardiogram result pending Hypertension Hypercholesterolemia Acute metabolic encephalopathy Acute lactic acidosis Troponin negative BNP negative Flu test negative COVID test negative Spent 50 minutes Advanced care planning time 20 minutes Patient is full code Plan discussed with: Patient My Orders Orders - CHAI THOMAS MD Procedure Category Date Status Time Azithromycin 500mg/ PHA 02/01/25 In Process 250ml (Zithromax 50 10:00 * Cardiology Consult CONS 01/31/25 Verified 13:23 Echo 2d Mode Cardiac US 02/01/25 Taken DOP 13:23 Date of Service: February 01, 2025 Billing Provider: CHAI THOMAS MD Common Visit Codes: [id number] INP/OBS CARE(HIGH) CHAI THOMAS MD February 01, 2025 11:57
--- NOTE | 2025-02-01 14:08 | DVHSR ---
APPROVED REPORT EXAM: Two-dimensional and M-mode echocardiogram with Doppler and color Doppler. INDICATION Dyspnea RISK FACTORS Height: 65, Weight: 165 DIMENSIONS LVDd4.5 (3.8-5.7cm)LA (2D)3.5 (1.9-4.0cm)Aortic Root3.6 (2.0-3.7cm) LVDs2.9 (2.5-4.0cm)LA (MM) (1.9-4.0cm)Aortic Cusp Exc1.6 (1.5-2.0cm) EF (%) 63.0 (55-70%)Rt. Atrium3.7 (1.9-4.0cm)Asc. Aorta cm IVSd1.4 (0.7-1.1cm)RV (D) (1.8-2.4cm) PWd1.5 (0.7-1.1cm) Mitral Valve MitralMitral Stenosis E wave0.74m/sMV Mean GR.mmHg A wave1.06m/sMV Peak GR.78mmHg E/A ratio0.72D MVAcm2 DECEL [id number] 1/2 [place] Aortic Valve Aortic ValveAortic Stenosis V10.92m/Luis F Mean GR.4mmHg V21.18m/Luis F Peak GR.6mmHg LVOT Diameter2.1 (1.8-2.4cm)Doppler AVA2.70cm2 Pulmonic Valve V20.81m/s Tricuspid Valve [id number] Other Information Quality : Technically Limited due to body habitus.Rhythm : Conclusion lvef 60% mild LVH normal rv function normal atria no severe valve abnormalities noted
--- NOTE | 2025-02-01 23:37 | DVHPN2 ---
Progress Note - Dictate Date Seen: February 01, 2025 Medical Necessity Reason Pt with a Central, PICC or Fol: No Subjective Patient was seen and evaluated in follow up. Patient is c/o SOB. Echo shows an EF of 60%, study was limited due to body habitus. WBC 16. Telemetry reviewed. vital signs Vital Sign Date Time Temp Pulse Resp B/P (MAP) Pulse Ox O2 Delivery O2 Flow Rate FiO2 02/01/25 21:00 98.6 94 19 134/81 (98) 96 98.6 02/01/25 20:00 Room Air* 0 21 Total Intake and Output 01/31/25 01/31/25 02/01/25 15:00 23:00 07:00 Intake Total 130 ml 125 ml 400 ml Output Total 0 ml Balance 130 ml 125 ml 400 ml medications Current Medications Medications Dose Ordered Sig/Tyler Route Start Time Stop Time Status Last Admin Dose Admin Ceftriaxone Sodium 50 ml @ 100 mls/hr DAILY@09 IV 02/01/25 09:00 02/01/25 09:11 100 MLS/HR Vancomycin HCl 0 ml @ 0 mls/hr UD IV 01/31/25 05:45 Cancel Aspirin 81 mg DAILY PO 01/31/25 10:00 02/01/25 09:11 81 MG Hydralazine HCl 10 mg Q6HP PRN IV 01/31/25 05:45 Atorvastatin Calcium 20 mg HS PO 01/31/25 22:00 02/01/25 21:07 20 MG Diagnostic Test (Pha) 1 strip ACHS 01/31/25 07:00 02/01/25 21:17 1 STRIP Insulin Human Regular ACHS SC 01/31/25 07:00 02/01/25 21:22 4 UNITS Dextrose 50 ml UD PRN IV 01/31/25 05:45 Sodium Chloride 1,000 ml @ 60 mls/hr [id number] IV 01/31/25 05:45 02/01/25 17:10 60 MLS/HR Acetaminophen/ Hydrocodone Bitart 1 tab Q4HP PRN PO 01/31/25 05:45 Ondansetron HCl 4 mg Q4HP PRN IV 01/31/25 05:45 Docusate Sodium 100 mg BIDPRN PRN PO 01/31/25 05:45 Acetaminophen 650 mg Q6HP PRN PO 01/31/25 05:45 Nitroglycerin 0.4 mg Q5MINP PRN SL 01/31/25 05:45 Morphine Sulfate 2 mg Q30M PRN IV 01/31/25 05:45 Vancomycin HCl 250 ml @ 200 mls/hr Q12H IV 01/31/25 17:00 Cancel Azithromycin 250 ml @ 125 mls/hr DAILY IV 02/01/25 10:00 02/01/25 09:46 125 MLS/HR objective GENERAL: Alert and oriented x 3. No acute distress. EYES: PERRL, EOMI. Anicteric. HENT: Moist mucous membranes. LUNGS: Decreased breath sounds. CARDIOVASCULAR: Regular rate and rhythm. ABDOMEN: Soft, nontender and nondistended. EXTREMITIES: No edema. NEUROLOGIC: No focal neurological deficits. SKIN: Warm, dry. laboratory and microbiology Laboratory Tests 02/01/25 06:43 Test 02/01/25 06:43 Range/Units Serum Glucose 104 74-106 mg/dL Problem List Acute hypoxic respiratory failure. Acute community-acquired right lower lobe pneumonia. Diabetes. Hypertension. Hypercholesterolemia. Acute metabolic encephalopathy. Acute lactic acidosis. Assessment/Plan Continued all current supportive medical care. Morphine and [place] for pain management. Aspirin, Lipitor. IV antibiotics as ordered. IV Hydralazine for SBP > 150. Nitro SL. Additional plan as per the hospital course. Plan discussed with: Patient LISY JACOBSON MD February 01, 2025 23:37
[2025-02-02 01:00] VITALS: BP 125/71; PULSE 76; RESP 18; TEMP 98.4; O2SAT 96
[2025-02-02 05:00] VITALS: BP 139/87; PULSE 85; RESP 20; TEMP 98.4; O2SAT 96
[2025-02-02 08:00] VITALS: PULSE 89; PULSE 90; RESP 20
[2025-02-02 09:30] VITALS: BP 150/59; PULSE 90; RESP 20; TEMP 97.9; O2SAT 94
--- NOTE | 2025-02-02 12:05 | DVHPN2 ---
Reviewed: Care Plan, H&P, Labs, Medications, Previous Orders, Radiology Changes from previous H/P or p: No Changes Eyes: No Pain, No Vision change, No Conjunctivae inflammation, No Eyelid inflammation, No Other, No Redness ENT: No Ear pain, No Ear discharge, No Nose pain, No Nose discharge, No Nose congestion, No Mouth pain, No Mouth swelling, No Throat pain, No Throat swelling, No Other Cardiovascular: No Chest Pain, No Palpitations, No Orthopnea, No Paroxysmal Noc. Dyspnea, No Edema, No Lt Headedness, No Other Respiratory: No Cough, No Dry; Shortness of breath, SOB with excertion; No Wheezing, No Hemoptysis, No Pleuritic Pain, No Sputum, No Other Gastrointestinal: No Nausea, No Vomiting, No Abdominal Pain, No Diarrhea, No Constipation, No Melena, No Hematochezia, No Other Genitourinary: No Dysuria, No Frequency, No Incontinence, No Hematuria, No Retention, No Other Musculoskeletal: No other, No neck pain, No shoulder pain, No arm pain, No back pain, No hand pain, No leg pain, No foot pain Skin: No Rash, No Lesions, No Jaundice, No Bruising, No Other Objective Vitals Vital Signs Date Time Temp Pulse Resp B/P (MAP) Pulse Ox O2 Delivery O2 Flow Rate FiO2 02/02/25 09:30 97.9 90 20 150/59 (89) 94 97.9 02/02/25 08:00 Room Air* 0 21 Intake/Output Intake and Output 02/02/25 07:00 Intake Total 1536 ml Balance 1536 ml Intake Oral 1236 ml IV Total 300 ml # Voids 9 # Bowel Movements 2 Medications Current Medications Medications Dose Ordered Sig/Tyler Route Start Time Stop Time Status Last Admin Dose Admin Ceftriaxone Sodium 50 ml @ 100 mls/hr DAILY@09 IV 02/01/25 09:00 02/02/25 09:16 100 MLS/HR Vancomycin HCl 0 ml @ 0 mls/hr UD IV 01/31/25 05:45 Cancel Aspirin 81 mg DAILY PO 01/31/25 10:00 02/02/25 09:16 81 MG Hydralazine HCl 10 mg Q6HP PRN IV 01/31/25 05:45 Atorvastatin Calcium 20 mg HS PO 01/31/25 22:00 02/01/25 21:07 20 MG Diagnostic Test (Pha) 1 strip ACHS 01/31/25 07:00 02/02/25 05:44 1 STRIP Insulin Human Regular ACHS SC 01/31/25 07:00 02/02/25 05:47 2 UNITS Dextrose 50 ml UD PRN IV 01/31/25 05:45 Sodium Chloride 1,000 ml @ 60 mls/hr [id number] IV 01/31/25 05:45 02/02/25 00:25 60 MLS/HR Acetaminophen/ Hydrocodone Bitart 1 tab Q4HP PRN PO 01/31/25 05:45 Ondansetron HCl 4 mg Q4HP PRN IV 01/31/25 05:45 Docusate Sodium 100 mg BIDPRN PRN PO 01/31/25 05:45 Acetaminophen 650 mg Q6HP PRN PO 01/31/25 05:45 Nitroglycerin 0.4 mg Q5MINP PRN SL 01/31/25 05:45 Morphine Sulfate 2 mg Q30M PRN IV 01/31/25 05:45 Vancomycin HCl 250 ml @ 200 mls/hr Q12H IV 01/31/25 17:00 Cancel Azithromycin 250 ml @ 125 mls/hr DAILY IV 02/01/25 10:00 02/01/25 09:46 125 MLS/HR Laboratory Results Laboratory Tests 02/01/25 06:43 Urinalysis Test 01/31/25 11:12 Urine Color Light-yellow (Yellow) Urine Clarity Clear (Clear) Urine pH 6.0 (5.0-9.0) Urine Specific [place] 1.028 (1.001-1.035) Urine Protein Negative (Negative) Urine Ketones Negative (Negative) Urine Blood Negative /uL (Negative) Urine Nitrite Negative (Negative) Urine Bilirubin Negative (Negative) Urine Urobilinogen Normal mg/dL (Negative) Urine Leukocyte Esterase Negative /uL (Negative) Urine RBC None seen /hpf (0 - 3) Urine Microscopic WBC 1 /HPF (0-3) Urine Squamous Epithelial Cells None seen /hpf (<5) Urine Bacteria None seen /hpf (None Seen) Urine Glucose 4+ mg/dL (Normal) H Microbiology Microbiology Date/Time Source Procedure Growth Status 01/31/25 04:00 Blood Blood Culture - Preliminary NO GROWTH AFTER 48 HOURS OF INCUBATION. Resulted Labs and/or images reviewed: Labs reviewed by me, Image(s) reviewed by me Assessment/Plan Assessment/Plan Acute hypoxic respiratory failure: Resolved Acute community-acquired right lower lobe pneumonia: Rocephin azithromycin albuterol Atrovent Solu-Medrol resolved Diabetes: Insulin sliding scale Possible congestive Heart failure: Cardiology consult by Dr. Butler appreciated, echocardiogram 60 percent ejection fraction Hypertension Hypercholesterolemia Acute metabolic encephalopathy Acute lactic acidosis Troponin negative BNP negative Flu test negative COVID test negative Spent 50 minutes Advanced care planning time 20 minutes Patient is full code Plan discussed with: Patient Date of Service: February 02, 2025 Billing Provider: CHAI THOMAS MD Common Visit Codes: [id number] INP/OBS CARE(HIGH) CHAI THOMAS MD February 02, 2025 12:05
[2025-02-02] MEDS ORDERED: AZIT500T66 PO (12:06)
--- NOTE | 2025-02-02 12:09 | DVHDS2 ---
Discharge Summary Date of Admission January 31, 2025 at 05:38 Date of Discharge: February 02, 2025 Admitting Diagnosis Shortness of breath Wounds: None Labs/Diagnostic Data: Laboratory Results Test 02/02/25 05:42 02/01/25 06:43 01/31/25 13:38 01/31/25 11:12 POC Glucose 147 mg/dl (70-106) White Blood Count 16.0 10^3/uL (4.4-10.8) Red Blood Count 4.83 10^6/uL (4.5-5.90) Hemoglobin 14.2 g/dL (13.5-17.5) Hematocrit 41.3 % (41.0-53.0) Mean Corpuscular Volume 85.6 fL (80.0-100.0) Mean Corpuscular Hemoglobin 29.4 pg (28.0-32.0) Mean Corpuscular Hemoglobin Concent 34.4 g/dL (32.0-36.0) Red Cell Distribution Width 13.3 % (11.8-14.3) Platelet Count 234 10^3/uL (140-450) Mean Platelet Volume 7.5 fL (6.9-10.8) Neutrophils (%) (Auto) 84.8 % (37.0-80.0) Lymphocytes (%) (Auto) 9.0 % (10.0-50.0) Monocytes (%) (Auto) 5.6 % (0.0-12.0) Eosinophils (%) (Auto) 0.4 % (0.0-7.0) Basophils (%) (Auto) 0.2 % (0.0-2.0) Neutrophils # (Auto) 13.6 10 ^3/uL (1.6-8.6) Lymphocytes # (Auto) 1.4 10 ^3/uL (0.4-5.4) Monocytes # (Auto) 0.9 10 ^3/uL (0-1.3) Eosinophils # (Auto) 0.1 10 ^3/uL (0-0.8) Basophils # (Auto) 0 10 ^3/uL (0-0.2) Nucleated Red Blood Cells 0.1 % Sodium Level 139 mmol/L (136-145) Potassium Level 3.7 mmol/L (3.5-5.1) Chloride Level 106 mmol/L (98-107) Carbon Dioxide Level 22 mmol/L (20-31) Anion Gap 11 (5-15) Blood Urea Nitrogen 14 mg/dL (9-23) Creatinine 0.75 mg/dL (0.700-1.30) Glomerular Filtration Rate Calc 100 mL/min (>90) BUN/Creatinine Ratio 18.7 (10.0-20.0) Serum Glucose 104 mg/dL (74-106) Calcium Level 9.2 mg/dL (8.7-10.4) Total Bilirubin 1.2 mg/dL (0.2-1.0) Aspartate Amino Transferase (AST) 20 U/L (13-40) Alanine Aminotransferase (ALT) 21 U/L (7-40) Alkaline Phosphatase 96 U/L (46-116) Total Protein 6.8 g/dL (5.7-8.2) Albumin 3.9 g/dL (3.2-4.8) D-Dimer, Quantitative 0.39 mg/L FEU (0.0-0.49) Urine Color Light-yellow (Yellow) Urine Clarity Clear (Clear) Urine pH 6.0 (5.0-9.0) Urine Specific [place] 1.028 (1.001-1.035) Urine Protein Negative (Negative) Urine Ketones Negative (Negative) Urine Blood Negative /uL (Negative) Urine Nitrite Negative (Negative) Urine Bilirubin Negative (Negative) Urine Urobilinogen Normal mg/dL (Negative) Urine Leukocyte Esterase Negative /uL (Negative) Urine RBC None seen /hpf (0 - 3) Urine Microscopic WBC 1 /HPF (0-3) Urine Squamous Epithelial Cells None seen /hpf (<5) Urine Bacteria None seen /hpf (None Seen) Urine Glucose 4+ mg/dL (Normal) Test 01/31/25 05:55 01/31/25 04:50 01/31/25 03:56 01/31/25 03:55 Lactic Acid Level 1.7 mmol/L (0.4-2.0) Influenza Type A Antigen Negative (Negative) Influenza Type B Antigen Negative (Negative) SARS-CoV-2 Antigen (Rapid) Negative (NEGATIVE) Blood Gas Specimen Type Arterial Blood Gas Sample Site Right radial Blood Gas Patient Temperature 37.0 Arterial Blood Date Drawn [id number] Arterial Blood pH 7.469 (7.350-7.450) Arterial Blood Partial Pressure CO2 24.4 mmHg (35.0-48.0) Arterial Blood Partial Pressure O2 80.6 mmHg (83.0-108.0) Arterial Blood HCO3 17.3 mmol/L (21.0-28.0) Arterial Blood Oxygen Saturation 96.1 % (94.0-98.0) Arterial Blood Base Excess -4.3 mmol/L (-2.0-3.0) Arterial Blood Oxyhemoglobin 95.1 % (94.0-98.0) Arterial Blood Carboxyhemoglobin 0.4 % (0.5-1.5) Arterial Blood Methemoglobin 0.6 % (0.0-1.5) Steven Test Yes Blood Gas Total Hemoglobin 14.90 g/dL (13.5-17.5) Blood Gas Modality Nasal cannula FiO2 % 36.0 Troponin I High Sensitivity 4 ng/L (</=54) B-Type Natriuretic Peptide 21.40 pg/mL (0-100) Other Laboratory Tests 02/01/25 06:43 Brief Hx & Hospital Course: 64-year-old male with a history of hypertension hypercholesterolemia came in for shortness of breaths found to have acute community-acquired right lower lobe pneumonia treated with Rocephin azithromycin albuterol Atrovent and Solu-Medrol improved significantly and at the time of discharge afebrile stable vital signs on room air. Echocardiogram 60 percent ejection fraction cardiology consult by Dr. Butler congestive heart failure ruled out. Troponin negative BNP negative flu test negative COVID test negative. Being discharged home on azithromycin for pneumonia. Consults/Reason for consult Cardiology Dr. Murali Butler Operations or Procedures Echocardiogram Condition at Discharge: Fair Final Diagnosis/Problems List Acute hypoxic respiratory failure: Resolved Acute community-acquired right lower lobe pneumonia: Rocephin azithromycin albuterol Atrovent Solu-Medrol resolved Diabetes: Insulin sliding scale Possible congestive Heart failure: Cardiology consult by Dr. Butler appreciated, echocardiogram 60 percent ejection fraction Hypertension Hypercholesterolemia Acute metabolic encephalopathy Acute lactic acidosis Troponin negative BNP negative Flu test negative COVID test negative Discharge Disposition: Home Discharge Instruct/Medications Diet: Cardiac 2g Na,low cholest Activity: Light activity Follow Up/Referral: Follow up with your primary Dr Mcdonald all previous home medication Medications: Azithromycin Transmitted to pharmacy 39 (Time taken for discharge summary 39 minutes) Discharge Statement: "Patient was advised to return to the ER or call 911 if any headaches, dizziness, shortness of breath, chest pain, abdominal pain, bleeding, fevers, or worsening of medical condition. Patient was counseled about treatment plan, medications, possible side effects, patient�verbalized understanding. All questions were answered to the best of my ability. This discharge took greater then 30 minutes in planning, reviewing documentation, counseling the patient, and discussing with other team members." ASSESSMENT ASSESSMENT Hospital Course Improved Assessment Acute hypoxic respiratory failure: Resolved Acute community-acquired right lower lobe pneumonia: Rocephin azithromycin albuterol Atrovent Solu-Medrol resolved Diabetes: Insulin sliding scale Possible congestive Heart failure: Cardiology consult by Dr. Butler appreciated, echocardiogram 60 percent ejection fraction Hypertension Hypercholesterolemia Acute metabolic encephalopathy Acute lactic acidosis Troponin negative BNP negative Flu test negative COVID test negative Date of Service: February 02, 2025 Billing Provider: CHAI THOMAS MD Common Visit Codes: [id number]-LHB/OBS DISCH DAY >30min CHAI THOMAS MD February 02, 2025 12:09
[2025-02-02 13:00] VITALS: BP 120/67; PULSE 87; RESP 20; TEMP 97.6; O2SAT 97
--- NOTE | 2025-02-02 21:51 | DVHPN2 ---
Progress Note - Dictate Date Seen: February 02, 2025 Medical Necessity Reason Pt with a Central, PICC or Fol: No Subjective Patient was seen and evaluated in follow up. Patient has no new complaints at this time. Patient denies any cardiac symptoms. Patient is cardiac stable for discharge. Telemetry reviewed. vital signs Vital Sign Date Time Temp Pulse Resp B/P (MAP) Pulse Ox O2 Delivery O2 Flow Rate FiO2 02/02/25 13:00 97.6 87 20 120/67 (84) 97 97.6 02/02/25 08:00 Room Air* 0 21 Total Intake and Output 02/01/25 02/01/25 02/02/25 15:00 23:00 07:00 Intake Total 300 ml 836 ml 460 ml Balance 300 ml 836 ml 460 ml medications Current Medications Medications Dose Ordered Sig/Tyler Route Start Time Stop Time Status Last Admin Dose Admin Vancomycin HCl 0 ml @ 0 mls/hr UD IV 01/31/25 05:45 Cancel Vancomycin HCl 250 ml @ 200 mls/hr Q12H IV 01/31/25 17:00 Cancel objective GENERAL: Alert and oriented x 3. No acute distress. EYES: PERRL, EOMI. Anicteric. HENT: Moist mucous membranes. LUNGS: Decreased breath sounds. CARDIOVASCULAR: Regular rate and rhythm. ABDOMEN: Soft, nontender and nondistended. EXTREMITIES: No edema. NEUROLOGIC: No focal neurological deficits. SKIN: Warm, dry. laboratory and microbiology Laboratory Tests 02/01/25 06:43 Test 02/01/25 06:43 Range/Units Serum Glucose 104 74-106 mg/dL Problem List Acute hypoxic respiratory failure. Acute community-acquired right lower lobe pneumonia. Diabetes. Hypertension. Hypercholesterolemia. Acute metabolic encephalopathy. Acute lactic acidosis. Assessment/Plan Continued all current supportive medical care. Morphine and [place] for pain management. Aspirin, Lipitor. IV antibiotics as ordered. IV Hydralazine for SBP > 150. Nitro SL. Additional plan as per the hospital course. Plan discussed with: Patient LISY JACOBSON MD February 02, 2025 21:51
== END 2025-02-02 14:00 | disposition home or self-care (01) | DRG 871 ==
LOC: EDBD 03:31 → ER 03:31 → OVERFLOW 05:38 → TELE-WESTW 16:40
PROVIDERS: ADMIT Family Medicine; ATTEND Family Medicine
DX: A41.9 Sepsis, unspecified organism (principal); G93.41 Metabolic encephalopathy; J96.01 Acute respiratory failure with hypoxia; J15.69 Pneumonia due to other Gram-negative bacteria; J15.9 Unspecified bacterial pneumonia; K92.0 Hematemesis; E87.21 Acute metabolic acidosis; E11.9 Type 2 diabetes mellitus without complications; E78.00 Pure hypercholesterolemia, unspecified; I50.9 Heart failure, unspecified; I11.0 Hypertensive heart disease with heart failure; K80.20 Calculus of gallbladder without cholecystitis without obstruction; Z20.822 Contact with and (suspected) exposure to COVID-19
CPT/HCPCS: 36415; 36600; 71045; 71250; 80053; 81001; 82805; 82962; 83605; 83880; 84484; 85025; 85379; 87040; 87426; 87804; 93005; 93306; 94640; 96365; G0378; J1815

== ENCOUNTER → 2025-02-12 | Outpatient (CLI) | payer MEDICARE, OTHER ==
[~2025-02-12] MED LIST: AZIT500T66 PO
[2025-02-12 12:09] LABS: Basophils # (auto) 0.1 10 ^3/uL (0-0.2); Eosinophils # (auto) 0.2 10 ^3/uL (0-0.8); Mean Corpuscular Hemoglobin 29.3 pg (28.0-32.0); Neutrophils # (auto) 4.4 10 ^3/uL (1.6-8.6)
[2025-02-12 12:11] LABS: Basophils % (auto) 0.8 % (0.0-2.0); Eosinophils % (auto) 2.3 % (0.0-7.0); Hematocrit 45.1 % (41.0-53.0); Hemoglobin 15.6 g/dL (13.5-17.5); Lymphocytes # (auto) 2.5 10 ^3/uL (0.4-5.4); Lymphocytes % (auto) 32.8 % (10.0-50.0); Mean Corpuscular Hgb Conc. 34.6 g/dL (32.0-36.0); Mean Corpuscular Volume 84.9 fL (80.0-100.0); Monocytes # (auto) 0.6 10 ^3/uL (0-1.3); Monocytes % (auto) 7.2 % (0.0-12.0); Neutrophils % (auto) 56.9 % (37.0-80.0); Nucleated Red Blood Cells % 0.2 %; Platelet Count (auto) 645 10^3/uL (140-450); Red Blood Cells 5.32 10^6/uL (4.5-5.90); Red Cell Distribution Width 13.2 % (11.8-14.3); White Blood Cell 7.7 10^3/uL (4.4-10.8)
== END | disposition home or self-care (01) ==
LOC: LAB 11:53
PROVIDERS: ATTEND Internal Medicine
DX: R05.9 Cough, unspecified (principal)
CPT/HCPCS: 36415; 85025

== ENCOUNTER 2025-03-16 10:33 | Outpatient (CLI) | payer MEDICARE, OTHER ==
[2025-03-16 11:12] LABS: Chloride 102 mmol/L (98-107); Potassium 4.1 mmol/L (3.5-5.1); Sodium 139 mmol/L (136-145)
[2025-03-16 11:13] LABS: Anion Gap 9 (5-15); Carbon Dioxide 28 mmol/L (20-31)
[2025-03-16 11:14] LABS: Calcium 9.6 mg/dL (8.7-10.4)
[2025-03-16 11:18] LABS: BUN/Creatinine Ratio 13.6 (10.0-20.0); Blood Urea Nitrogen 12 mg/dL (9-23)
[2025-03-16 11:19] LABS: Glucose 123 mg/dL (74-106)
[2025-03-16] MEDS ORDERED: IOHEXOL 300 MG/ML 100ML BOTTLE IJ ONE (13:43)
== END 2025-03-16 17:00 | disposition home or self-care (01) ==
LOC: LAB 10:33
PROVIDERS: ATTEND Internal Medicine
DX: R05.9 Cough, unspecified (principal)
CPT/HCPCS: 36415; 80048; 85379; Q9967

== ENCOUNTER 2025-05-02 05:27 | Inpatient (IN) | payer MEDICARE, OTHER ==
[~2025-05-02] VITALS: Ht 165.1 cm; Wt 168.0 kg
--- NOTE | 2025-05-02 06:42 | ED.PDOC ---
HPI (NEURO) HPI Comments 64 y/o M, with PMhx of HTN, HLD, and DM presents to the ED for CC of dizziness. Patient states, he has been experiencing symptoms of dizziness with associated nausea and vomiting onset, today (05/02/25). Patient reports, to have experienced similar episodes in the past. Patient denies headache headache, blurred vision, fatigue, weakness, chills, or fever. No other symptoms or modifying factors present at this time. Chief Complaint: Dizziness Time Seen by MD: 06:37 Reviewed Notes: Nurses Notes, Medications, Allergies Information Source: Patient Mode of Arrival: Wheelchair Severity: Moderate Dizziness/Weakness Severity: Unable to do activities Headache Severity: None Timing: Hours Duration: Since onset Prehospital treatment: None Onset: At rest Circumstances: Spontaneous Symptoms: Vertigo Before: Normal During: Awake After: Normal Mentation History of: None Modifying factors: Nothing Associated Signs and Symptoms: Nausea, Vomiting Past Medical History PAST MEDICAL HISTORY: DM, High Lipids, HTN Family History Family History: Reviewed,noncontributory to illness Social History Smoker: Non-Smoker Alcohol: Denies ETOH Use Drugs: Denies Drug Use Lives In: Home Constitutional: denies: chills, diaphoresis, fatigue, fever, malaise, sweats, w eakness, others EENTM: denies: blurred vision, double vision, ear bleeding, ear discharge, ear drainage, ear pain, ear ringing, eye pain, eye redness, hearing loss, mouth pain, mouth swelling, nasal discharge, nose bleeding, nose congestion, nose pain, photophobia, tearing, throat pain, throat swelling, voice changes, others Respiratory: denies: cough, hemoptysis, orthopnea, SOB at rest, shortness of breath, SOB with excertion, stridor, wheezing, others Cardiovascular: denies: chest pain, dizzy spells, diaphoresis, Dyspnea on exertion, edema, irregular heart beat, left arm pain, lightheadedness, palpitations, PND, syncope, others Gastrointestinal: reports: nausea, vomiting; denies: abdomen distended, abdominal pain, blood streaked bowels, constipated, diarrhea, dysphagia, difficulty swallowing, hematemesis, melena, poor appetite, poor fluid intake, rectal bleeding, rectal pain, others Genitourinary: denies: burning, dysuria, flank pain, frequency, hematuria, incontinence, penile discharge, penile sore, pain, testicle pain, testicle swelling, urgency, others Neurological: reports: dizziness; denies: fainting, headache, left sided numbness, left sided weakness, numbness, paresthesia, pre-existing deficit, right sided numbness, right sided weakness, seizure, speech problems, tingling, tremors, weakness, others Musculoskeletal: denies: back pain, gout, joint pain, joint swelling, muscle pain, muscle stiffness, neck pain, others Integumetry: denies: bruises, change in color, change in hair/nails, dryness, laceration, lesions, lumps, rash, wounds, others Allergic/Immunocompromised: denies: Difficulty Healing, Frequent Infections, Hives, Itching, others Hematologic/Lymphatic: denies: anemia, blood clots, easy bleeding, easy bruising, swollen glands, others Endocrine: denies: excessive hunger, excessive sweating, excessive thirst, excessive urination, flushing, intolerance to cold, intolerance to heat, unexplained weight gain, unexplained weight loss, others Psychiatric: denies: anxiety, bipolar disorder, depression, hopeless, panic disorder, schizophrenia, sleepless, suicidal, others All Other Systems: Reviewed and Negative Physical Exam General Appearance: Moderate Distress HEENT: Normal ENT Inspection, Pharynx Normal, TMs Normal Neck: Full Range of Motion, Non-Tender, Normal, Normal Inspection Respiratory: Chest Non-Tender, Lungs Clear, No Accessory Muscle Use, No Respiratory Distress, Normal Breath Sounds Cardiovascular: No Edema, No JVD, No Murmur, No Gallop, Normal Peripheral Pulses, Regular Rate/Rhythm Breast Exam: Deferred Gastrointestinal: No Organomegaly, Non Tender, No Pulsatile Mass, Normal Bowel Sounds, Soft Genitalia: Deferred Pelvic: Deferred Rectal: Deferred Extremities: No calf tenderness, No pedal edema Musculoskeletal : Apperance: Normal Neurologic: Alert, marketing designer II-XII nml as Tested, No Motor Deficits, Normal Affect, Normal Mood, No Sensory Deficits Cerebellar Function: NOT DONE Reflexes: NOT DONE Skin: Dry, Normal Color, Warm Peripheral Pulses: 3+ Radial (R), 3+ Radial (L) Lymphatic: No Adenopathy EKG EKG : Pulse Rate (adult): 63 [place]: Normal Cardiac Rhythm: NSR Block: None Hypertrophy: None ST: Normal Was a procedure done? Was a procedure done?: No Differential Diagnosis (SZ) Seizure: Psychogenic Seizure, Closed Head Injury, CVA/TIA General Weakness: Vertigo: central, Vertigo: peripheral X-Ray, Labs, Meds, VS Vital Signs Date Time Temp Pulse Resp B/P (MAP) Pulse Ox O2 Delivery O2 Flow Rate FiO2 05/02/25 05:27 98.3 72 20 137/72 100 98.3 Patient alert. Complaining of dizziness. Unable to open his eyes without being dizzy. Vitals stable. Possibly vertigo. Establish intravenous access Was given fluids. Was given Ativan. Was given Zofran. He has been perfectly healthy. Explained to the patient. Continue monitoring. Time of 1ST Reevaluation: 07:23 Reevaluation 1ST: Unchanged Patient Education/Counseling: Diagnosis, Treatment Family Education/Counseling: No Family Present Departure 1 Departure Time of Disposition: 06:44 Impression: Primary Impression: Autonomic disorder Disposition: 01 HOME / SELF CARE / HOMELESS Condition: Good Discharged With: Self Critical Care Note Critical Care Time?: No Stability Stability form required: No Heart Score Heart Score: Heart Score Response (Comments) Value History Slightly Suspicious 0 EKG Normal 0 Age >65 2 Risk Factors 1 or 2 risk factors 1 Troponin Normal limit 0 Total 3 I personally scribed for ARIEL MARINELLI MD ([email or web address]) on 05/02/25 at 06:42. Electronically submitted by Florecita Balbuena ([email or web address]). ARIEL MARINELLI MD May 02, 2025 06:42
[2025-05-02 07:00] LABS: Hematocrit 44.1 % (41.0-53.0); Hemoglobin 15.5 g/dL (13.5-17.5); Mean Corpuscular Hemoglobin 30.0 pg (28.0-32.0); Mean Corpuscular Volume 85.6 fL (80.0-100.0); Nucleated Red Blood Cells % 0.0 %
[2025-05-02 07:09] LABS: Chloride 106 mmol/L (98-107); Potassium 4.2 mmol/L (3.5-5.1); Sodium 141 mmol/L (136-145)
[2025-05-02 07:10] LABS: Anion Gap 12 (5-15); Calcium 9.0 mg/dL (8.7-10.4); Carbon Dioxide 23 mmol/L (20-31)
[2025-05-02 07:15] LABS: BUN/Creatinine Ratio 11.8 (10.0-20.0); Blood Urea Nitrogen 10 mg/dL (9-23)
[2025-05-02 07:16] LABS: Glucose 194 mg/dL (74-106)
--- NOTE | 2025-05-02 09:19 | DVH ---
CLINICAL INFORMATION: Dizziness. TECHNIQUE: Axial imaging was obtained through the brain without contrast. Coronal and sagittal reform atted images were obtained, reviewed, and stored. Images were reviewed in brain and bone windows. Al l CT scans at this medical facility are performed using dose modulation techniques as appropriate to a performed exam including the following: Automated exposure control was utilized; adjustment of the MA and/or KV according to patient size; and use of iterative reconstruction technique. CTDIvol = 53.5 1 mGy DLP = 966.64 mGy-cm COMPARISON: None FINDINGS: There is no acute intracranial hemorrhage. No mass effect or midline shift. The ventricles and sulci are within normal limits in size for age. Basal cisterns are patent. The calvarium is unre markable. Retention cyst versus polyp in the right maxillary sinus. Mild mucosal thickening of the p aranasal sinuses. IMPRESSION: 1. No CT evidence of acute intracranial abnormality. 2. Nonacute findings as described above.
[2025-05-02] MEDS ORDERED: MECLIZINE HCL 25 MG TAB PO PRN (09:30)
[2025-05-02] MEDS ORDERED: TEMAZEPAM 15 MG CAP PO PRN (09:30)
[2025-05-02] MEDS ORDERED: ONDANSETRON HCL 4 MG/2 ML VIAL IV PRN (09:30)
[2025-05-02] MEDS ORDERED: MORPHINE SULFATE INJ 2 MG/ml SYRG IV PRN (09:30)
[2025-05-02] MEDS ORDERED: NITROGLYCERIN 0.4 MG SL TAB SL PRN (09:30)
[2025-05-02] MEDS ORDERED: DOCUSATE SOD 100 MG CAP PO PRN (09:30)
[2025-05-02] MEDS: SODIUM CHLORIDE 0.9% 1,000 ML IV SCH (09:30)
[2025-05-02] MEDS: ONDANSETRON HCL 4 MG/2 ML VIAL IV ONE (09:32)
[2025-05-02] MEDS: LORazepam 2MG/ML-1ML VIAL IV ONE (09:32)
[2025-05-02] MEDS: SODIUM CHLORIDE 0.9% 1,000 ML IV ONE (09:32)
--- NOTE | 2025-05-02 11:48 | DVHHP2 ---
History of Present Illness Reason for Visit: Dizziness History of Present Illness 64-year-old male past medical history hypertension hyperlipidemia diabetes vertigo right shoulder surgery in 2008 chief complaint patient states he had the same episode in 2006. This morning he he got up and he stated that he fell and hit his right shoulder he said prior to the fall he felt dizzy and then he blacked out and was on the floor proximally 5-10 minutes he stated he states he got up he felt continued dizziness so he called 911 and was brought to the ER for evaluation he currently denies any chest pain or shortness with the breath patient states he had the same thing in 2006 he was not able to work for a week due to the dizziness he was given the medication he do not remember the name and it helped him with the symptoms patient had an unwitnessed fall at the time of the fall he did state he had a episode of vomiting and diarrhea but there was no blood in in his vomit or stool he denies any ear pain no cough no fever he denied any seizure activity with his fall when evaluating patient's labs and imaging from ID Zofran was given Ativan normal saline CBC was unremarkable CMP unremarkable troponin negative glucose was 194 CT scan of the brain was unremarkable with these findings we will admit and ask for Neurology evaluation and do syncopal/dizzy workup Past Medical History See HPI above Past Surgical History See HPI above Family History Reviewed, non-contributory to the management of this case. Lives: with Family Past Social History The patient lives at home, denies smoking, alcohol or illicit drugs abuse. Review of Systems Constitutional: No: Fever, Chills, Sweats, Weakness, Malaise, Other Eyes: No: Pain, Vision change, Conjunctivae inflammation, Eyelid inflammation, Other, Redness ENT: No: Ear pain, Ear discharge, Nose pain, Nose discharge, Nose congestion, Mouth pain, Mouth swelling, Throat pain, Throat swelling, Other Respiratory: No: Cough, Dry, Shortness of breath, SOB with excertion, Wheezing, Hemoptysis, Pleuritic Pain, Sputum, Wheezing, Other Cardiovascular: No: Chest Pain, Palpitations, Orthopnea, Paroxysmal Noc. Dyspnea, Edema, Lt Headedness, Other Gastrointestinal: No: Nausea, Vomiting, Abdominal Pain, Diarrhea, Constipation, Melena, Hematochezia, Other Genitourinary: No Dysuria, No Frequency, No Incontinence, No Hematuria, No Retention, No Other Musculoskeletal: No: other, neck pain, shoulder pain, arm pain, back pain, hand pain, leg pain, foot pain Skin: No: Rash, Lesions, Jaundice, Bruising, Other Neurological: Other (Dizziness); No: Weakness, Numbness, Incoordination, Change in speech, Confusion, Seizures Allergies: Coded Allergies: NO KNOWN ALLERGIES (Unverified , 01/31/25) Medications Current Medications Medications Dose Ordered Sig/Tyler Route Start Time Stop Time Status Last Admin Dose Admin Meclizine HCl 25 mg Q8HPRN PRN PO 05/02/25 09:30 Sodium Chloride 1,000 ml @ 120 mls/hr Q8H20M IV 05/02/25 09:30 Temazepam 15 mg QHSP PRN PO 05/02/25 09:30 Ondansetron HCl 4 mg Q4HP PRN IV 05/02/25 09:30 Docusate Sodium 100 mg BIDPRN PRN PO 05/02/25 09:30 Morphine Sulfate 2 mg Q4HPRN PRN IV 05/02/25 09:30 Nitroglycerin 0.4 mg Q5MINP PRN SL 05/02/25 09:30 Exam Vital Signs Vital Signs Date Time Temp Pulse Resp B/P (MAP) Pulse Ox O2 Delivery O2 Flow Rate FiO2 05/02/25 09:31 97.6 59 13 143/68 (93) 98 97.6 05/02/25 09:31 Room Air General Appearance: Alert, Oriented X3, Cooperative, No acute distress HEENT: Atraumatic, PERRLA, EOMI, Mucous membr. moist/pink Respiratory: Clear to auscultation, Normal air movement Cardiovascular: Regular rate, Normal S1, Normal S2, No murmurs Abdominal: Normal bowel sounds, Soft, No tenderness, No hepatospenomegaly, No masses Extremities: No clubbing, No cyanosis, No edema, Normal pulses, No tenderness/swelling Skin: No rashes, No breakdown, No significant lesion Neuro: Normal speech, Other (Neuro nonfocal) Psych/Mental Status: Mental status NL, Mood NL Labs/Xrays CT scan of the brain unremarkable I reviewed labs, imaging CT scan abdomen pelvis, EKG and all diagnostic studies on this patient from ED records and the medical chart Labs Test 05/02/25 06:45 Range/Units White Blood Count 8.2 4.4-10.8 10^3/uL Red Blood Count 5.16 4.5-5.90 10^6/uL Hemoglobin 15.5 13.5-17.5 g/dL Hematocrit 44.1 41.0-53.0 % Mean Corpuscular Volume 85.6 80.0-100.0 fL Mean Corpuscular Hemoglobin 30.0 28.0-32.0 pg Mean Corpuscular Hemoglobin Concent 35.0 32.0-36.0 g/dL Red Cell Distribution Width 13.6 11.8-14.3 % Platelet Count 296 140-450 10^3/uL Mean Platelet Volume 7.1 6.9-10.8 fL Neutrophils (%) (Auto) 74.6 37.0-80.0 % Lymphocytes (%) (Auto) 17.6 10.0-50.0 % Monocytes (%) (Auto) 6.1 0.0-12.0 % Eosinophils (%) (Auto) 1.3 0.0-7.0 % Basophils (%) (Auto) 0.4 0.0-2.0 % Neutrophils # (Auto) 6.1 1.6-8.6 10 ^3/uL Lymphocytes # (Auto) 1.4 0.4-5.4 10 ^3/uL Monocytes # (Auto) 0.5 0-1.3 10 ^3/uL Eosinophils # (Auto) 0.1 0-0.8 10 ^3/uL Basophils # (Auto) 0 0-0.2 10 ^3/uL Nucleated Red Blood Cells 0.0 % Sodium Level 141 136-145 mmol/L Potassium Level 4.2 3.5-5.1 mmol/L Chloride Level 106 98-107 mmol/L Carbon Dioxide Level 23 20-31 mmol/L Anion Gap 12 5-15 Blood Urea Nitrogen 10 9-23 mg/dL Creatinine 0.85 0.700-1.30 mg/dL Glomerular Filtration Rate Calc 96 >90 mL/min BUN/Creatinine Ratio 11.8 10.0-20.0 Serum Glucose 194 H 74-106 mg/dL Calcium Level 9.0 8.7-10.4 mg/dL Troponin I High Sensitivity < 3 L </=54 ng/L SEPSIS Sepsis Screen Date sepsis recognized/suspect: May 02, 2025 Time Sepsis recognized/suspect: 0527 Recent Procedure: No On Antibiotic Therapy: No Respiratory Rate >20: No Heart Rate >90: No Temp<36 C (96.8 F) or >38.3 C: No SBP <90 or MAP <65 mmHG: No New Acute Mental Status Change: No Is the patient on CPAP, BIPAP,: No Physician Orders Head Without Contrast (05/02/25 08:18) Meclizine Tablet (Antivert Tablet) (05/02/25 09:30) Admit (05/02/25:21) Allergies (05/02/25:) Code Status (05/02/25:) Sodium Chloride 0.9% (05/02/25:30) Temazepam (Restoril) (05/02/25:30) Ondansetron Hcl (Zofran) (05/02/25:30) Docusate Sodium Capsule (Colace Capsule) (05/02/25:30) Complete Blood Count (05/03/25 04:00) Comprehensive Metabolic Panel (05/03/25 04:00) Cardiac Diet-2gna,Lofat,Lochol (05/02/25 Breakfast) Pt Request For Service (05/02/25:) Condition: Stable (05/02/25:) BRP (05/02/25:) Morphine Sulfate Injection (05/02/25:30) Sequential Compression Device (05/02/25 ) Nitroglycerin Sublingual (Ntrostat Subli (05/02/25:30) Stat Ekg For Chest Pain (05/02/25:) Notify Md Of Changes From Base (05/02/25:) Front Desk Assistant For 24 Hours (05/02/25:) Emergency Dysrhythmia Protocol (05/02/25:) Rhythm Strips Once Every Shift (05/02/25:) Oxygen By Nasal Cannula (05/02/25:) Carotid Duplx W Color Dop (05/02/25:21) Echo 2d Mode Cardiac Dop (05/02/25:) Fall Precautions Initiated (05/02/25:) Fall Risk Precautions In Place QSHIFT (8/10/25 09:21) * Neurology Consult (05/02/25 09:21) Vital Signs Date Time Temp Pulse Resp B/P (MAP) Pulse Ox O2 Delivery O2 Flow Rate FiO2 05/02/25 09:31 97.6 59 13 143/68 (93) 98 97.6 05/02/25 09:31 59 13 98 Room Air 05/02/25 06:42 63 05/02/25 06:38 59 05/02/25 05:39 63 05/02/25 05:27 98.3 72 20 137/72 100 98.3 Laboratory Tests Test 05/02/25 06:45 White Blood Count 8.2 10^3/uL (4.4-10.8) Medications Medications Dose Ordered Sig/Tyler Route Start Time Stop Time Status Last Admin Dose Admin Lorazepam 1 mg ONCE ONCE IV 05/02/25 06:45 05/02/25 06:46 DC 05/02/25 09:32 1 MG Ondansetron HCl 4 mg ONCE ONCE IV 05/02/25 06:45 05/02/25 06:46 DC 05/02/25 09:32 4 MG Sodium Chloride 1,000 ml @ 1,000 mls/hr Q1H ONCE IV 05/02/25 06:45 05/02/25 07:44 DC 05/02/25 09:32 1,000 MLS/HR Assessment/Plan Assessment/Plan Acute dizziness rule out stroke vs vertigo CT scan of the brain unremarkable Ordered neurology consult fu recs PT eval and treat Cardiac diet cont asa atorvastatin Continue home medications for blood pressure neuro checks q2h fall precautions ordered Carotid Doppler study f/u results ordered Echo fu results cont meclizine acute right shoulder pain xr shoulder fu results acute nausea vomiting and diarrhea ordered zofran ordered ivf for hydration chronic problems htn hld vertigo fen/ppx diet ivf hl scd plan admit to tele neurology consult fu recs Plan discussed with: Patient My Orders Orders - ANDERSON HORTON DNP Procedure Category Date Status Time Meclizine Tablet PHA 05/02/25 In Process (Antivert Tablet) 09:30 Admit ADMIT 05/02/25 Transmitted 09:21 Allergies [place] 05/02/25 In Process 09:21 Code Status CODE 05/02/25 Transmitted 09:21 Sodium Chloride 0.9% PHA 05/02/25 In Process 09:30 Temazepam (Restoril) PHA 05/02/25 In Process 09:30 Ondansetron Hcl PHA 05/02/25 In Process (Zofran) 09:30 Docusate Sodium PHA 05/02/25 In Process Capsule (Colace 09:30 Complete Blood Count LAB 05/03/25 Verified 04:00 Comprehensive LAB 05/03/25 Verified Metabolic Panel 04:00 Cardiac DIET 05/02/25 Transmitted Diet-2gna,Lofat,Lochol Breakfast Pt Request For Service PT 05/02/25 Logged 09:21 Condition: Stable [place] 05/02/25 In Process 09:21 BRP [place] 05/02/25 In Process 09:21 Morphine Sulfate PHA 05/02/25 In Process Injection 09:30 Sequential [place] 05/02/25 In Process Compression Device Nitroglycerin PHA 05/02/25 In Process Sublingual (Ntrostat 09:30 Stat Ekg For Chest [place] 05/02/25 In Process Pain 09:21 Notify Md Of Changes [place] 05/02/25 In Process From Base 09:21 Front Desk Assistant For [facility] 05/02/25 In Process 24 Hours 09:21 Emergency Dysrhythmia [facility] 05/02/25 In Process Protocol 09:21 Rhythm Strips Once [place] 05/02/25 In Process Every Shift 09:21 Oxygen By Nasal RT 05/02/25 Transmitted Cannula 09:21 Carotid Duplx W Color US 05/02/25 Taken DOP 09:21 Echo 2d Mode Cardiac US 05/02/25 Logged DOP 09:21 Fall Precautions [place] 05/02/25 In Process Initiated 09:21 Fall Risk Precautions [place] 05/02/[address] 09:21 * Neurology Consult CONS 05/02/25 Transmitted 09:21 Date of Service: May 02, 2025 Billing Provider: ANDERSON HORTON DNP Common Visit Codes: [id number] INP/OBS CARE (HIGH) ANDERSON HORTON [facility] May 02, 2025 11:48
--- NOTE | 2025-05-02 12:33 | DVH ---
CLINICAL HISTORY: eval for vascular occlusion acute dizziness TECHNIQUE: Duplex carotid Doppler ultrasound was performed. Grayscale, color-flow, and spectral wavef orm analysis was performed. COMPARISON: None FINDINGS: There is minimal plaque seen on morales scale imaging in the carotid bifurcations and proximal ICAs bila terally. There is no significant elevation of the peak systolic velocity. There is no significant spectral broadening. Color doppler examination demonstrates no evidence for significant turbulent fl ow. Findings correspond to the less than 50% stenosis category. Antegrade flow is noted in both mariann tebral arteries. EXAMINATION DATA: RIGHT PSV (cm/s) EDV (cm/s) ICA 87 26 CCA 57 ECA 60 ICA/CCA Ratio: 1.5 Vertebral Flow: antegrade LEFT PSV (cm/s) EDV (cm/s) ICA 76 21 CCA 59 ECA 48 ICA/CCA Ratio: 1.3 Vertebral Flow: antegrade IMPRESSION: 1. Findings consistent with the less than 50% carotid stenosis category bilaterally. 2. Normal antegrade flow in the vertebral arteries.
[2025-05-02 19:30] VITALS: BP 128/63; PULSE 68; RESP 20; TEMP 98.1; O2SAT 96
--- NOTE | 2025-05-03 14:36 | ECG ---
[facility] Test Date: 2025-05-02 Test Time: 05:39:40 Pat Name: SUZANNA CHERRY Department: [facility] ED Patient ID: [facility]-[id number] Room: [address] [place] [address] Gender: M Outreach Professional: : 1960 Requested By: ARIEL MARINELLI Order Number: [id number] Reading MD: Kermit Ferraro Measurements Intervals [place] Rate: 63 P: 52 [place]: 171 QRS: 26 QRSD: 99 T: 1 QT: 445 QTc: 456 Interpretive Statements Sinus rhythm Anteroseptal infarct, old Minimal ST elevation, lateral leads Electronically Signed On 05-03-2025 18:21:45 PDT by Kermit Ferraro Please click the below link to view image of tracing.
--- NOTE | 2025-05-03 14:36 | ECG ---
[facility] Test Date: 2025-05-02 Test Time: 06:38:32 Pat Name: SUZANNA CHERRY Department: ED Room: [address] [place] [address] A Gender: M Digital Assistant: : 1960 Requested By: ARIEL MARINELLI Order Number: [id number] Reading MD: Kermit Ferraro Measurements Intervals [place] Rate: 59 P: 43 [place]: 168 QRS: 50 QRSD: 99 T: -2 QT: 438 QTc: 434 Interpretive Statements Sinus rhythm Anteroseptal infarct, old Borderline repolarization abnormality Borderline ST elevation, lateral leads Electronically Signed On 05-03-2025 18:22:27 PDT by Kermit Ferraro Please click the below link to view image of tracing.
== END 2025-05-02 19:42 | disposition left against medical advice (07) | DRG 74 ==
LOC: ER 05:27 → EDBD 05:27 → OVERFLOW 09:21
PROVIDERS: ADMIT Nurse Practitioner Family; ATTEND Nurse Practitioner Family
DX: G90.9 Disorder of the autonomic nervous system, unspecified (principal); E11.9 Type 2 diabetes mellitus without complications; E78.5 Hyperlipidemia, unspecified; I10 Essential (primary) hypertension; Z53.29 Procedure and treatment not carried out because of patient's decision for other reasons; M25.511 Pain in right shoulder; R42 Dizziness and giddiness
CPT/HCPCS: 36415; 70450; 80048; 84484; 85025; 93005; 93886; G0378; J2405

== ENCOUNTER 2025-06-23 06:57 | Outpatient (CLI) | payer MEDICARE, OTHER ==
[2025-06-23 07:55] LABS: Triglycerides 142.0 mg/dL (< 150)
[2025-06-23 07:56] LABS: Cholesterol 126.0 mg/dL (< 200)
[2025-06-23 07:57] LABS: HDL Cholesterol 49.0 mg/dL (40-59)
== END 2025-06-23 17:00 | disposition home or self-care (01) ==
LOC: LAB 06:57
PROVIDERS: ATTEND Internal Medicine
DX: Z12.11 Encounter for screening for malignant neoplasm of colon (principal); I10 Essential (primary) hypertension; E11.9 Type 2 diabetes mellitus without complications; E78.5 Hyperlipidemia, unspecified; E55.9 Vitamin D deficiency, unspecified; R20.2 Paresthesia of skin; R55 Syncope and collapse
CPT/HCPCS: 36415; 80061; 82270; 82306; 82607; 84443; 85652; 86141